=== PATIENT | male | born 1940 | race Caucasian/White ===

== ENCOUNTER → 2021-03-02 | Outpatient (CLI) | payer MEDICARE, OTHER ==
--- NOTE | 2021-03-02 16:03 | NM ---
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 Images acq uired 3 hours post injection. Whole body images, spot images over the thoracic and lumbar region were performed. FINDINGS: There has been prior left nephrectomy. Uptake within the hands, wrists, knees, feet and ankles, shoul ders, sternoclavicular joints is likely degenerative. Uptake within the thoracic and lumbar spine may be due to degenerative disc disease. There is no abnormal uptake to suggest metastatic disease. Upta ke in the maxilla and mandible likely due to periodontal disease. IMPRESSION: Osteoarthritic changes, degenerative disc disease.
== END | disposition home or self-care (01) ==
LOC: RADNMMAIN 11:24
PROVIDERS: ATTEND Physical Medicine & Rehabilitation
DX: M51.36 Other intervertebral disc degeneration, lumbar region (principal); M17.0 Bilateral primary osteoarthritis of knee; M19.011 Primary osteoarthritis, right shoulder; M19.012 Primary osteoarthritis, left shoulder
CPT/HCPCS: 78306; A9503

== ENCOUNTER 2024-02-19 07:10 | Inpatient (IN) | payer MEDICARE, OTHER ==
--- NOTE | 2024-02-19 07:21 | ED ---
Weakness HPI - General Stated complaint: Tachycardia Time Seen by Provider: 02/19/24 07:15 Source: RN notes reviewed, old records reviewed Mode of arrival: ambulatory Limitations: no limitations - History of Present Illness Initial comments: This is an 83-year-old male to the ER for evaluation today. Patient comes in for significant weakness stated all throughout last night and into this morning he had persistent shaking, tremors, feeling freezing and sweating. Patient's [place] does have known flu, patient has no cough congestion maybe some shortness of breath without chest pain patient has had cough and shortness of breath since last night MD Complaint: generalized weakness, lack of energy -: hour(s) Location: generalized Severity: moderate Consistency: constant Improves with: none Worsens with: none Context: recent illness (family member with recent illness) Associated Symptoms: fever/chills, loss of appetite, myalgias, shortness of breath - Related Data Home Medications Medication Instructions Recorded Confirmed INSULIN LISPRO (HumaLOG) [humaLOG] 8 - 11 units SQ AC-TID 02/19/24 02/19/24 Insulin Glargine [Lantus Vial] 25 - 26 unit SQ HS 02/19/24 02/19/24 [place]-3/Dha/Epa/Fish Oil [Fish Oil 1 cap PO DAILY 02/19/24 02/19/24 1,000 mg Softgel] Vits A,C,E/Lutein/Minerals 1 tab PO DAILY 02/19/24 02/19/24 [Ocuvite with Lutein Tablet] lisinopriL [Zestril] 20 mg PO DAILY 02/19/24 02/19/24 Previous Rx's Medication Instructions Recorded Aspirin 81 mg PO DAILY tab 02/22/24 Atorvastatin [Lipitor] 20 mg PO HS #30 tab 02/22/24 cefUROXime axetiL [Ceftin] 500 mg PO BID #10 tab 02/22/24 Allergies Allergy/AdvReac Type Severity Reaction Status Date / Time Penicillins Allergy Rash/Hives Verified 02/19/24 12:44 Review of Systems ROS Statement: Those systems with pertinent positive or pertinent negative responses have been documented in the HPI. ROS Other: All systems not noted in ROS Statement are negative. General Exam General appearance: alert, anxious, in distress Head exam: Present: atraumatic, normocephalic, normal inspection Eye exam: Present: normal appearance, PERRL, EOMI. Absent: scleral icterus, conjunctival injection, periorbital swelling ENT exam: Present: normal exam, mucous membranes dry Neck exam: Present: normal inspection. Absent: tenderness, meningismus, lymphadenopathy Respiratory exam: Present: wheezes. Absent: respiratory distress, rales, rhonchi, stridor Cardiovascular Exam: Present: normal rhythm, tachycardia, normal heart sounds. Absent: systolic murmur, diastolic murmur, rubs, gallop, clicks GI/Abdominal exam: Present: soft, normal bowel sounds. Absent: distended, tenderness, guarding, rebound, rigid Extremities exam: Present: normal inspection, full ROM, normal capillary refill. Absent: tenderness, pedal edema, joint swelling, calf tenderness Back exam: Present: normal inspection Neurological exam: Present: alert, oriented X3, CN II-XII intact Psychiatric exam: Present: normal affect, normal mood Skin exam: Present: warm, dry, intact, normal color. Absent: rash Course Vital Signs 02/19/24 02/19/24 02/19/24 07:40 08:24 08:46 Temperature 103.5 F H 100.8 F H Pulse Rate 113 H Respiratory 19 19 Rate Blood Pressure 119/60 O2 Sat by Pulse 93 L Oximetry 02/19/24 02/19/24 02/19/24 10:10 12:44 16:16 Temperature 98.2 F 97.3 F L Pulse Rate 88 81 73 Respiratory 17 18 18 Rate Blood Pressure 112/61 105/54 112/62 O2 Sat by Pulse 93 L 95 97 Oximetry 02/19/24 20:51 Temperature Pulse Rate 90 Respiratory 20 Rate Blood Pressure 114/71 O2 Sat by Pulse 97 Oximetry - Reevaluation(s) Reevaluation #1: 02/19/24 12:22 Medical records reviewed Reevaluation #2: 02/19/24 12:22 Patient symptoms unchanged Reevaluation #3: 02/19/24 12:22 Patient informed of results and questions answered Reevaluation #4: Was pt. sent in by a medical professional or institution (, PA, VASCULAR SONOGRAPHER, urgent care, hospital, or detention...) When possible be specific @ -no Did you speak to anyone other than the patient for history (EMS, parent, family, police, friend...)? What history was obtained from this source @ -no Did you review nursing and triage notes (agree or disagree)? Why? @ -agree Are old charts reviewed (outside hosp., previous admission, EMS record, old EKG, old radiological studies, urgent care reports/EKG's, detention records)? Report findings @ -yes Differential Diagnosis (chest pain, altered mental status, abdominal pain women, abdominal pain men, vaginal bleeding, weakness, fever, dyspnea, syncope, headache, dizziness, GI bleed, back pain, seizure, CVA, palpatations, mental health, musculoskeletal)? @ -prior EKG interpreted by me (3pts min.). @ -yes X-rays interpreted by me (1pt min.). @ -yes negative for acute disease CT interpreted by me (1pt min.). @ -no U/S interpreted by me (1pt. min.). @ -no What testing was considered but not performed or refused? (CT, X-rays, U/S, labs)? Why? @ -none What meds were considered but not given or refused? Why? @ -none Did you discuss the management of the patient with other professionals (professionals i.e. , PA, VASCULAR SONOGRAPHER, lab, RT, psych nurse, forensic social worker, network developer, teacher, correction officer supervisor, top case assembler)? Give summary @ -no Was smoking cessation discussed for >3mins.? @ -no Was critical care preformed (if so, how long)? @ -no Were there social determinants of health that impacted care today? How? (Homelessness, low income, unemployed, alcoholism, drug addiction, transportation, low edu. Level, literacy, decrease access to med. care, correction, rehab)? @ -none Was there de-escalation of care discussed even if they declined (Discuss DNR or withdrawal of care, Hospice)? DNR status @ -no What co-morbidities impacted this encounter? (DM, HTN, Smoking, COPD, CAD, Cancer, CVA, ARF, Chemo, Hep., AIDS, mental health diagnosis, sleep apnea, morbid obesity)? @ -none Was patient admitted / discharged? Hospital course, mention meds given and route, prescriptions, significant lab abnormalities, going to OR and other pertinent info. @ - 83 male to ER for evaluation of fever. Patient is having fever here in the emergency department, weakness body aches and pains, family member recently diagnosed with influenza concern for viral illness but patient does have elevated troponin will admit for non-ST elevated [place] Admitted Undiagnosed new problem with uncertain prognosis? @ -no Drug Therapy requiring intensive monitoring for toxicity (Heparin, Nitro, Insulin, Cardizem)? @ -no Were any procedures done? @ -no Diagnosis/symptom? @ -Non-STEMI fever viral illness Acute, or Chronic, or Acute on Chronic? @ -Acute Uncomplicated (without systemic symptoms) or Complicated (systemic symptoms)? @ -Complicated Side effects of treatment? @ -no Exacerbation, Progression, or Severe Exacerbation? @ -exacerbation Poses a threat to life or bodily function? How? (Chest pain, [place], [place], pneumonia, PE, COPD, DKA, ARF, appy, cholecystitis, CVA, Diverticulitis, Homicidal, Suicidal, threat to staff... and all critical care pts) @ -yes extremes of age Reevaluation #5: Differential Fever: Pneumonia, viral URI, endocarditis, myocarditis, pericarditis, otitis, sinusitis, peritonsillar Abscess, retropharyngeal Abscess, epiglottitis, peritonitis, appendicitis, Lucia cystitis, diverticulitis, hepatitis, colitis, UTI, PID, TOA, pyelonephritis, prostatitis, epididymitis, meningitis, encephalitis, pulmonary embolism, CVA, thyroid storm, pancreatitis, adrenal crisis, cavernous sinus thrombosis, this is not meant to be an all-inclusive list. - Consultations Consultation #1: Spoke with admitting physicians who agreed admit this patient EKG Findings - EKG Comments: EKG Findings:: EKG is sinus tachycardia 102 CO 189 QRS 87 QTc 369 - EKG Results: EKG: interpreted by DANILOD Medical Decision Making - Medical Decision Making 83 male to ER for evaluation of fever. Patient is having fever here in the emergency department, weakness body aches and pains, family member recently diagnosed with influenza concern for viral illness but patient does have elevated troponin will admit for non-ST elevated [place] - Lab Data Result diagrams: 02/22/24 12:58 02/20/24 07:40 Lab Results 02/19/24 02/19/24 02/19/24 Range/Units 08:21 08:21 08:21 WBC 7.8 (3.8-10.6) k/uL RBC 4.29 L (4.30-5.90) m/uL Hgb 14.1 (13.0-17.5) gm/dL Hct 41.4 (39.0-53.0) % MCV 96.5 (80.0-100.0) fL MCH 32.9 (25.0-35.0) pg MCHC 34.1 (31.0-37.0) g/dL RDW 13.9 (11.5-15.5) % Plt Count 143 L (150-450) k/uL MPV 7.8 Neutrophils % 94 % Lymphocytes % 3 % Monocytes % 1 % Eosinophils % 1 % Basophils % 0 % Neutrophils # 7.3 (1.3-7.7) k/uL Lymphocytes # 0.2 L (1.0-4.8) k/uL Monocytes # 0.1 (0-1.0) k/uL Eosinophils # 0.1 (0-0.7) k/uL Basophils # 0.0 (0-0.2) k/uL PT 12.3 (10.0-12.5) sec INR 1.1 (<1.2) APTT 22.3 (22.0-30.0) sec Sodium 136 L (137-145) mmol/L Potassium 4.0 (3.5-5.1) mmol/L Chloride 109 H (98-107) mmol/L Carbon Dioxide 20 L (22-30) mmol/L Anion Gap 7 mmol/L BUN 28 H (9-20) mg/dL Creatinine 1.25 (0.66-1.25) mg/dL Est GFR (CKD-EPI)AfAm 63 (>60 ml/min/1.73 sqM) Est GFR (CKD-EPI)NonAf 54 (>60 ml/min/1.73 sqM) Glucose 170 H (74-99) mg/dL Lactic Ac Sepsis Rflx Plasma Lactic Acid Patrick (0.7-2.0) mmol/L Calcium 9.3 (8.4-10.2) mg/dL Phosphorus 1.1 L (2.5-4.5) mg/dL Magnesium 1.2 L (1.6-2.3) mg/dL Total Bilirubin 1.4 H (0.2-1.3) mg/dL AST 33 (17-59) U/L ALT 19 (4-49) U/L Alkaline Phosphatase 75 (38-126) U/L Troponin I (0.000-0.034) ng/mL NT-Pro-B Natriuret Pep 120 pg/mL Total Protein 6.8 (6.3-8.2) g/dL Albumin 3.8 (3.5-5.0) g/dL Urine Color Urine Appearance (Clear) Urine pH (5.0-8.0) Ur Specific [place] (1.001-1.035) Urine Protein (Negative) Urine Glucose (UA) (Negative) Urine Ketones (Negative) Urine Blood (Negative) Urine Nitrite (Negative) Urine Bilirubin (Negative) Urine Urobilinogen (<2.0) mg/dL Ur Leukocyte Esterase (Negative) Influenza Type A (PCR) (Not Detectd) Influenza Type B (PCR) (Not Detectd) RSV (PCR) (Not Detectd) SARS-CoV-2 (PCR) (Not Detectd) 02/19/24 02/19/24 02/19/24 Range/Units 08:21 08:21 08:21 WBC (3.8-10.6) k/uL RBC (4.30-5.90) m/uL Hgb (13.0-17.5) gm/dL Hct (39.0-53.0) % MCV (80.0-100.0) fL MCH (25.0-35.0) pg MCHC (31.0-37.0) g/dL RDW (11.5-15.5) % Plt Count (150-450) k/uL MPV Neutrophils % % Lymphocytes % % Monocytes % % Eosinophils % % Basophils % % Neutrophils # (1.3-7.7) k/uL Lymphocytes # (1.0-4.8) k/uL Monocytes # (0-1.0) k/uL Eosinophils # (0-0.7) k/uL Basophils # (0-0.2) k/uL PT (10.0-12.5) sec INR (<1.2) APTT (22.0-30.0) sec Sodium (137-145) mmol/L Potassium (3.5-5.1) mmol/L Chloride (98-107) mmol/L Carbon Dioxide (22-30) mmol/L Anion Gap mmol/L BUN (9-20) mg/dL Creatinine (0.66-1.25) mg/dL Est GFR (CKD-EPI)AfAm (>60 ml/min/1.73 sqM) Est GFR (CKD-EPI)NonAf (>60 ml/min/1.73 sqM) Glucose (74-99) mg/dL Lactic Ac Sepsis Rflx Plasma Lactic Acid Patrick 2.2 H* (0.7-2.0) mmol/L Calcium (8.4-10.2) mg/dL Phosphorus (2.5-4.5) mg/dL Magnesium (1.6-2.3) mg/dL Total Bilirubin (0.2-1.3) mg/dL AST (17-59) U/L ALT (4-49) U/L Alkaline Phosphatase (38-126) U/L Troponin I 1.060 H* (0.000-0.034) ng/mL NT-Pro-B Natriuret Pep pg/mL Total Protein (6.3-8.2) g/dL Albumin (3.5-5.0) g/dL Urine Color Urine Appearance (Clear) Urine pH (5.0-8.0) Ur Specific [place] (1.001-1.035) Urine Protein (Negative) Urine Glucose (UA) (Negative) Urine Ketones (Negative) Urine Blood (Negative) Urine Nitrite (Negative) Urine Bilirubin (Negative) Urine Urobilinogen (<2.0) mg/dL Ur Leukocyte Esterase (Negative) Influenza Type A (PCR) Not Detected (Not Detectd) Influenza Type B (PCR) Not Detected (Not Detectd) RSV (PCR) Not Detected (Not Detectd) SARS-CoV-2 (PCR) Not Detected (Not Detectd) 02/19/24 02/19/24 Range/Units 10:06 11:48 WBC (3.8-10.6) k/uL RBC (4.30-5.90) m/uL Hgb (13.0-17.5) gm/dL Hct (39.0-53.0) % MCV (80.0-100.0) fL MCH (25.0-35.0) pg MCHC (31.0-37.0) g/dL RDW (11.5-15.5) % Plt Count (150-450) k/uL MPV Neutrophils % % Lymphocytes % % Monocytes % % Eosinophils % % Basophils % % Neutrophils # (1.3-7.7) k/uL Lymphocytes # (1.0-4.8) k/uL Monocytes # (0-1.0) k/uL Eosinophils # (0-0.7) k/uL Basophils # (0-0.2) k/uL PT (10.0-12.5) sec INR (<1.2) APTT (22.0-30.0) sec Sodium (137-145) mmol/L Potassium (3.5-5.1) mmol/L Chloride (98-107) mmol/L Carbon Dioxide (22-30) mmol/L Anion Gap mmol/L BUN (9-20) mg/dL Creatinine (0.66-1.25) mg/dL Est GFR (CKD-EPI)AfAm (>60 ml/min/1.73 sqM) Est GFR (CKD-EPI)NonAf (>60 ml/min/1.73 sqM) Glucose (74-99) mg/dL Lactic Ac Sepsis Rflx Y Plasma Lactic Acid Patrick (0.7-2.0) mmol/L Calcium (8.4-10.2) mg/dL Phosphorus (2.5-4.5) mg/dL Magnesium (1.6-2.3) mg/dL Total Bilirubin (0.2-1.3) mg/dL AST (17-59) U/L ALT (4-49) U/L Alkaline Phosphatase (38-126) U/L Troponin I (0.000-0.034) ng/mL NT-Pro-B Natriuret Pep pg/mL Total Protein (6.3-8.2) g/dL Albumin (3.5-5.0) g/dL Urine Color Yellow Urine Appearance Clear (Clear) Urine pH 5.0 (5.0-8.0) Ur Specific [place] 1.020 (1.001-1.035) Urine Protein Negative (Negative) Urine Glucose (UA) Negative (Negative) Urine Ketones Negative (Negative) Urine Blood Negative (Negative) Urine Nitrite Negative (Negative) Urine Bilirubin Negative (Negative) Urine Urobilinogen 2.0 (<2.0) mg/dL Ur Leukocyte Esterase Negative (Negative) Influenza Type A (PCR) (Not Detectd) Influenza Type B (PCR) (Not Detectd) RSV (PCR) (Not Detectd) SARS-CoV-2 (PCR) (Not Detectd) - Radiology Data Radiology results: report reviewed (Chest x-ray is negative for acute disease), image reviewed Critical Care Time Critical Care Time: Yes Total Critical Care Time: 31 Disposition Clinical Impression: Fever, Hypomagnesemia, NSTEMI (non-ST elevated myocardial infarction), Positive blood culture, Weakness Disposition: ADMITTED IP TO THIS HOSP Is patient prescribed a controlled substance at d/c from ED?: No Time of Disposition: 12:30
[2024-02-19] MEDS: IBUPROFEN 800 MG TAB PO STA (07:53)
[2024-02-19] MEDS: ACETAMINOPHEN TAB 500 MG TAB PO STA (07:53)
[2024-02-19] MEDS: SODIUM CHLORIDE 0.9% 1,000 ML IV STA (08:20)
[2024-02-19 08:38] LABS: Basophils % (A) 0 %; Eosinophils # (A) 0.1 k/uL (0-0.7); Eosinophils % (A) 1 %; HCT 41.4 % (39.0-53.0); HGB 14.1 gm/dL (13.0-17.5); Lymphocytes # (A) 0.2 k/uL (1.0-4.8); Lymphocytes % (A) 3 %; MCH 32.9 pg (25.0-35.0); MCHC 34.1 g/dL (31.0-37.0); MCV 96.5 fL (80.0-100.0); Mean Platelet Volume 7.8; Monocytes # (A) 0.1 k/uL (0-1.0); Monocytes % (A) 1 %; Neutrophils # (A) 7.3 k/uL (1.3-7.7); Neutrophils % (A) 94 %; Platelet Count 143 k/uL (150-450); RBC 4.29 m/uL (4.30-5.90); RDW 13.9 % (11.5-15.5); WBC 7.8 k/uL (3.8-10.6)
[2024-02-19 09:05] LABS: INR 1.1 (<1.2); Partial Thromboplastin Time 22.3 sec (22.0-30.0); Prothrombin Time 12.3 sec (10.0-12.5)
--- NOTE | 2024-02-19 09:22 | XR ---
EXAMINATION TYPE: XR chest 2V DATE OF EXAM: 02/19/2024 COMPARISON: NONE TECHNIQUE: PA and lateral views submitted. HISTORY: Cough FINDINGS: No pleural effusion or pneumothorax. No consolidative pneumonia. No overt failure. Biapical pleural t hickening. Degenerative changes of the spine. Arthropathy of the right AC joint. IMPRESSION: 1. No definite acute process. [facility], , 02/19/2024 9:20 AM
[2024-02-19 09:42] LABS: ALT 19 U/L (4-49); AST 33 U/L (17-59); African American GFR (CKD) 63 (>60 ml/min/1.73 sqM); Albumin 3.8 g/dL (3.5-5.0); Alkaline Phosphatase 75 U/L (38-126); Anion Gap 7 mmol/L; Blood Urea Nitrogen 28 mg/dL (9-20); Calcium 9.3 mg/dL (8.4-10.2); Carbon Dioxide 20 mmol/L (22-30); Chloride 109 mmol/L (98-107); Glucose 170 mg/dL (74-99); Magnesium 1.2 mg/dL (1.6-2.3); Non-African American GFR(CKD) 54 (>60 ml/min/1.73 sqM); Phosphorus 1.1 mg/dL (2.5-4.5); Sodium 136 mmol/L (137-145); Total Bilirubin 1.4 mg/dL (0.2-1.3); Total Protein 6.8 g/dL (6.3-8.2)
[2024-02-19 09:44] LABS: NT-Pro-B-Type Natriuretic Pept 120 pg/mL
[2024-02-19] MEDS: MAGNESIUM OXIDE 400 MG TAB PO STA ×2 (09:55)
[2024-02-19] MEDS: MAGNESIUM SULFATE-D5W PMX 1 GM in DEXTROSE/WATER 1 100ML.BAG IVPB ONE (09:56)
[2024-02-19] MEDS: SODIUM CHLORIDE 0.9% 500 ML 500 ML IV STA (10:05)
[2024-02-19] MEDS: SODIUM CHLORIDE 0.9% 1,000 ML IV SCH (11:04)
[2024-02-19] MEDS ORDERED: MORPHINE SULFATE 4 MG/ML SYRINGE IV PRN (12:18)
[2024-02-19] MEDS ORDERED: ONDANSETRON 4 MG/2 ML VIAL IVP PRN (12:18)
[2024-02-19] MEDS ORDERED: ASPIRIN 325 MG TAB PO STA (12:18)
[2024-02-19] MEDS ORDERED: ACETAMINOPHEN TAB 325 MG TAB PO PRN (12:18)
[2024-02-19] MEDS ORDERED: NALOXONE 0.4 MG/ML 1 ML VIAL IV PRN (12:18)
[2024-02-19 12:22] LABS: Appearance,Urine Clear (Clear); Bilirubin,Urine Negative (Negative); Blood,Urine Negative (Negative); Color,Urine Yellow; Glucose,Urine (UA) Negative (Negative); Ketones,Urine Negative (Negative); Leukocyte Esterase,Urine Negative (Negative); Nitrite,Urine Negative (Negative); Protein,Urine Negative (Negative)
[2024-02-19] MEDS: ACETAMINOPHEN IV (For NPO) 1,000 MG in EMPTY BAG 1 BAG IVPB STA (13:06)
[2024-02-19] MEDS: ASPIRIN 81 MG PO STA (13:08)
[2024-02-19] MEDS: LORazepam 2 MG/ML INJ IV STA (13:09)
[2024-02-19] MEDS ORDERED: HEPARIN SODIUM 1,000 UN/ML (10ML VL) IV PRN (13:53)
[2024-02-19] MEDS ORDERED: Phosphorus Replacement Protoco 1 EACH MISC MISCELLANE PRN (13:53)
[2024-02-19] MEDS ORDERED: DEXTROSE 50% SYRINGE 50 ML IVP PRN ×2 (13:55)
--- NOTE | 2024-02-19 13:57 | P.HPIM ---
History of Present Illness H&P Date: 02/19/24 History of present illness; patient is a 83-year-old gentleman with past medical history significant for diabetes mellitus, pancreatitis the ER because of chills and shortness of breath for 1 day. Patient stated that he was all right last night when he started noticing that he was shaking uncontrollably. Patient did not check his fever at the time but felt very cold. Patient also complained of shortness of breath at the time. Shortness of breath was at rest as on exertion. Denied any chest pain. There is no complaint of orthopnea or PND. Denied any nausea or vomiting. Patient stated that her feeling of being cold lasted throughout the night and this morning he decided to come to the ER. Initial vital signs in the ER showed a temperature of 103.5. Initial lab work done in the ER showed WBC 7.8, hemoglobin 14.1, platelet count of 143 sodium 136, potassium 4, BUN 28, creatinine 1.25, lactate 2.2, phosphorus 1.1, magnesium 1.2, bilirubin 1.4, troponin 1.060 UA negative for any infection Influenza A not detected Influenza B not detected RSV not detected COVID-19 not detected EKG done in the ER showed heart rate of 102, no ST segment elevation or depression seen, no T-wave inversions seen. Chest x-ray done in the ER no acute process Patient admitted to internal medicine service REVIEW OF SYSTEMS: CONSTITUTIONAL: Mentioned above HEENT: No recent visual problems or hearing problems. Denied any sore throat. CARDIOVASCULAR: As mentioned above PULMONARY: As mentioned above GASTROINTESTINAL: No diarrhea, no nausea, no vomiting, no abdominal pain. NEUROLOGICAL: No headaches, no weakness, no numbness. HEMATOLOGICAL: Denies any bleeding or petechiae. GENITOURINARY: Denies any burning micturition, frequency, or urgency. MUSCULOSKELETAL/RHEUMATOLOGICAL: Denies any joint pain, swelling, or any muscle pain. ENDOCRINE: Denies any polyuria or polydipsia. The rest of the 14-point review of systems is negative. PHYSICAL EXAMINATION: GENERAL: The patient is alert and oriented x3, not in any acute distress. Well developed, well nourished. HEENT: Pupils are round and equally reacting to light. EOMI. No scleral icterus. No conjunctival pallor. Normocephalic, atraumatic. No pharyngeal erythema. No thyromegaly. CARDIOVASCULAR: S1 and S2 present. No murmurs, rubs, or gallops. PULMONARY: Chest is clear to auscultation, no wheezing or crackles. ABDOMEN: Soft, nontender, nondistended, normoactive bowel sounds. No palpable organomegaly. MUSCULOSKELETAL: No joint swelling or deformity. EXTREMITIES: No cyanosis, clubbing, or pedal edema. NEUROLOGICAL: Gross neurological examination did not reveal any focal deficits. SKIN: No rashes. Assessment and plan NSTEMI Hypophosphatemia Hypomagnesemia Fever of unknown origin Insulin-dependent diabetes mellitus Hypertension Monitor vital signs Monitor CBC Monitor CMP Continue telemetry monitoring Trend troponin Ordered ultrasound of abdomen Ordered blood cultures Ordered 2D echo Ordered CRP, ESR, Pro-Rashaad Hold off on antibiotics for now Start pharmacy to dose heparin Consult cardiology Labs and medication were reviewed.. Continue same treatment. Continue with symptomatic treatment. Resume home medication. Monitor labs and vitals. DVT and GI prophylaxis. Further recommendations as per clinical course of the patient Dictation was produced using [employer] dictation software. please excuse any grammatical, word or spelling errors. Past Medical History Past Medical History: Diabetes Mellitus, Hypertension Additional Past Medical History / Comment(s): macular degeneration History of Any Multi-Drug Resistant Organisms: None Reported Additional Past Surgical History / Comment(s): Kidney Cancer/removed 2006, Pancreatitis, ablation/surgery in 2007 Past Psychological History: No Psychological Hx Reported Smoking Status: Former smoker Past Alcohol Use History: Daily Medications and Allergies Home Medications Medication Instructions Recorded Confirmed Type INSULIN LISPRO (HumaLOG) [humaLOG] 8 - 11 units SQ AC-TID 02/19/24 02/19/24 History Insulin Glargine [Lantus Vial] 25 - 26 unit SQ HS 02/19/24 02/19/24 History [place]-3/Dha/Epa/Fish Oil [Fish Oil 1 cap PO DAILY 02/19/24 02/19/24 History 1,000 mg Softgel] Vits A,C,E/Lutein/Minerals 1 tab PO DAILY 02/19/24 02/19/24 History [Ocuvite with Lutein Tablet] lisinopriL [Zestril] 20 mg PO DAILY 02/19/24 02/19/24 History Allergies Allergy/AdvReac Type Severity Reaction Status Date / Time Penicillins Allergy Rash/Hives Verified 02/19/24 12:44 Physical Exam Vitals: Vital Signs Temp Pulse Resp BP Pulse Ox 02/19/24 12:44 81 18 105/54 95 02/19/24 10:10 98.2 F 88 17 112/61 93 L 02/19/24 08:46 100.8 F H 02/19/24 08:24 19 02/19/24 07:40 103.5 F H 113 H 19 119/60 93 L Intake and Output 02/18/24 02/19/24 02/19/24 22:59 06:59 14:59 Other: Weight 103.419 kg Results CBC & Chem 7: 02/19/24 08:21 02/19/24 08:21 Labs: Abnormal Lab Results - Last 24 Hours (Table) 02/19/24 02/19/24 02/19/24 Range/Units 08:21 08:21 08:21 RBC 4.29 L (4.30-5.90) m/uL Plt Count 143 L (150-450) k/uL Lymphocytes # 0.2 L (1.0-4.8) k/uL Sodium 136 L (137-145) mmol/L Chloride 109 H (98-107) mmol/L Carbon Dioxide 20 L (22-30) mmol/L BUN 28 H (9-20) mg/dL Glucose 170 H (74-99) mg/dL Plasma Lactic Acid Patrick 2.2 H* (0.7-2.0) mmol/L Phosphorus 1.1 L (2.5-4.5) mg/dL Magnesium 1.2 L (1.6-2.3) mg/dL Total Bilirubin 1.4 H (0.2-1.3) mg/dL Troponin I (0.000-0.034) ng/mL 02/19/24 Range/Units 08:21 RBC (4.30-5.90) m/uL Plt Count (150-450) k/uL Lymphocytes # (1.0-4.8) k/uL Sodium (137-145) mmol/L Chloride (98-107) mmol/L Carbon Dioxide (22-30) mmol/L BUN (9-20) mg/dL Glucose (74-99) mg/dL Plasma Lactic Acid Patrick (0.7-2.0) mmol/L Phosphorus (2.5-4.5) mg/dL Magnesium (1.6-2.3) mg/dL Total Bilirubin (0.2-1.3) mg/dL Troponin I 1.060 H* (0.000-0.034) ng/mL
[2024-02-19 14:40] LABS: Glucose,Whole Blood 158 mg/dL (70-110)
[2024-02-19 14:41] LABS: Basophils % (A) 0 %; Eosinophils % (A) 0 %; HCT 38.5 % (39.0-53.0); HGB 12.9 gm/dL (13.0-17.5); Lymphocytes # (A) 0.3 k/uL (1.0-4.8); Lymphocytes % (A) 2 %; MCHC 33.4 g/dL (31.0-37.0); MCV 98.7 fL (80.0-100.0); Mean Platelet Volume 7.7; Monocytes # (A) 0.5 k/uL (0-1.0); Monocytes % (A) 4 %; Neutrophils # (A) 14.1 k/uL (1.3-7.7); Neutrophils % (A) 94 %; Platelet Count 131 k/uL (150-450); RDW 13.5 % (11.5-15.5)
[2024-02-19] MEDS: HEPARIN SOD,PORK IN 0.45% NACL 25,000 UNIT in 0.45% NACL 1 250ML.BAG IV SCH (14:41)
[2024-02-19 15:03] LABS: INR 1.2 (<1.2); Partial Thromboplastin Time 25.1 sec (22.0-30.0); Prothrombin Time 12.7 sec (10.0-12.5)
[2024-02-19] MEDS: POTAS-SOD-PHOS 278-164-250 MG 1 EACH PACKET PO ONE (15:16)
--- NOTE | 2024-02-19 15:36 | US ---
EXAMINATION TYPE: US abdomen limited DATE OF EXAM: 02/19/2024 COMPARISON: NONE CLINICAL INDICATION: Male, 83 years old with history of Elevated bilirubin; Elevated bilirubin. left nephrectomy TECHNIQUE: Multiple sonographic images of the right upper quadrant are obtained. FINDINGS: EXAM MEASUREMENTS: Liver Length: 15.5 cm Gallbladder Wall: 0.2 cm CBD: 0.6 cm Right Kidney: 13.3 x 5.4 x 5.5 cm BUNDLE BREAKER NOTES:*Technical limitations due to large amount of overlying bowel gas Pancreas: Obscured by bowel gas Liver: visualized portions appear wnl Gallbladder: stones Evidence for sonographic Johnson's sign: no CBD: upper limits of normal Right Kidney: no evidence of hydronephrosis IMPRESSION: Cholelithiasis. Common bile duct at the upper limits of normal at 6 mm. [facility], , 02/19/2024 3:33 PM
[2024-02-19] MEDS ORDERED: IOPAMIDOL CONTRAST (ORAL USE) VIAL PO PRN (17:07)
[2024-02-19 17:49] LABS: Glucose,Whole Blood 183 mg/dL (70-110)
[2024-02-19] MEDS: INSULIN ASPART (NovoLOG) 100 UNIT/ML VIAL SQ SCH (18:27)
[2024-02-19] MEDS ORDERED: INSULIN DETEMIR (LEVEMIR) 100 UNIT/ML SYR SQ SCH (21:00)
--- NOTE | 2024-02-19 21:13 | CT ---
EXAMINATION TYPE: CT abdomen pelvis w con DATE OF EXAM: 02/19/2024 COMPARISON: CT angiogram dated 12/19/2012 HISTORY: nausea, fever CT DLP: 1582 mGycm Automated exposure control for dose reduction was used. TECHNIQUE: Helical acquisition of images was performed from the lung bases through the pelvis. CONTRAST: Performed with Oral Contrast and with IV Contrast, patient injected with 80cc mL of Isovue 300. The lung bases are clear. There are multiple small gallstones but no gallbladder distention, wall thickening or pericholecystic fluid. There is no biliary ductal dilatation. There is no focal mass or organomegaly involving the liver, pancreas, spleen or adrenal glands. The p ancreas is markedly atrophic. There are postsurgical changes of left nephrectomy. There is no solid right renal mass, calcification or hydronephrosis. The caliber the abdominal aorta is normal is no retroperitoneal adenopathy or hem orrhage. The bowel loops are normal in caliber and there is no evidence of dilatation or obstruction. No infla mmatory changes are identified in the bowel wall or mesentery. There is diverticulosis of the descend ing sigmoid colon without CT evidence of diverticulitis There is a mesh anterior hernia repair. There is no free intraperitoneal air or fluid. No pelvic mass, free fluid, abscess or adenopathy. There is moderate prostatic hypertrophy. The osseous structures and soft tissues are intact. IMPRESSION: 1. No acute changes within the abdomen or pelvis. 2. Left nephrectomy. 3. Marked pancreatic atrophy. 4. Cholelithiasis. 5. Moderate prostatic hypertrophy [facility], , 02/19/2024 9:10 PM
[2024-02-19 21:25] LABS: Glucose,Whole Blood 231 mg/dL (70-110)
[2024-02-19 21:27] LABS: Erythrocyte Sedimentation Rate 21 mm/Hr (0-20)
--- NOTE | 2024-02-19 21:44 | P.CONS ---
History of Present Illness - Reason for Consult Consult date: 02/19/24 Fever of unknown origin Requesting physician: Marvin Masters - Chief Complaint Rigors and chills x 1 day - History of Present Illness Patient is a 83-year-old male with a past medical history significant for diabetes mellitus hypertension macular degeneration former smoker presenting to the hospital for evaluation of rigors and chills in this patient symptom started the night before presentation to the hospital patient mention he did have a significant episode of rigors and chills subsequently started having sweating patient denies having any headache or URI symptoms denies having any chest pain shortness of breath or cough no nausea no vomiting no abdominal pain no diarrhea or constipation patient on presentation to the hospital did have a fever of 103.5 F patient was tachycardic not hypotensive or hypoxic and no need for supplemental oxygen patient did have a white count of 15,000 with a left shift creatinine is 1.25 bilirubin was 1.4 troponins are elevated urine has been negative he tested negative for influenza RSV and COVID patient did have a chest x-ray no definite acute process patient did have an abdominal ultrasound did shows cholelithiasis common bile duct at upper limits of normal patient has been admitted to the hospital infectious he was consulted for further management antibiotic therapy Review of Systems Positive point and negatives has been mentioned in the HPI, complete review of systems was performed and all other systems are negative Past Medical History Past Medical History: Diabetes Mellitus, Hypertension Additional Past Medical History / Comment(s): macular degeneration History of Any Multi-Drug Resistant Organisms: None Reported Additional Past Surgical History / Comment(s): Kidney Cancer/removed 2006, Pancreatitis, ablation/surgery in 2007 Past Psychological History: No Psychological Hx Reported Smoking Status: Former smoker Past Alcohol Use History: Daily Medications and Allergies Home Medications Medication Instructions Recorded Confirmed Type INSULIN LISPRO (HumaLOG) [humaLOG] 8 - 11 units SQ AC-TID 02/19/24 02/19/24 History Insulin Glargine [Lantus Vial] 25 - 26 unit SQ HS 02/19/24 02/19/24 History [place]-3/Dha/Epa/Fish Oil [Fish Oil 1 cap PO DAILY 02/19/24 02/19/24 History 1,000 mg Softgel] Vits A,C,E/Lutein/Minerals 1 tab PO DAILY 02/19/24 02/19/24 History [Ocuvite with Lutein Tablet] lisinopriL [Zestril] 20 mg PO DAILY 02/19/24 02/19/24 History Allergies Allergy/AdvReac Type Severity Reaction Status Date / Time Penicillins Allergy Rash/Hives Verified 02/19/24 12:44 Physical Exam Vitals: Vital Signs Temp Pulse Resp BP Pulse Ox 02/19/24 16:16 97.3 F L 73 18 112/62 97 02/19/24 12:44 81 18 105/54 95 02/19/24 10:10 98.2 F 88 17 112/61 93 L 02/19/24 08:46 100.8 F H 02/19/24 08:24 19 02/19/24 07:40 103.5 F H 113 H 19 119/60 93 L Intake and Output 02/19/24 02/19/24 02/19/24 06:59 14:59 22:59 Other: Weight 103.419 kg GENERAL DESCRIPTION: Elderly male up in bed, no distress. No tachypnea or accessory muscle of respiration use. HEENT: Shows Pallor , no scleral icterus. Oral mucous membrane is dry. No pharyngeal erythema or thrush NECK: Trachea central, no thyromegaly. LUNGS: Unlabored breathing. Clear to auscultation anteriorly. No wheeze or crackle. HEART: S1, S2, regular rate and rhythm. No loud murmur ABDOMEN: Soft, no tenderness , guarding or rigidity, no organomegaly EXTREMITIES: No edema of feet. SKIN: No rash, no masses palpable. NEUROLOGICAL: The patient is awake, alert, oriented x3, mood and affect normal. Results CBC & Chem 7: 02/19/24 14:11 02/19/24 08:21 Labs: Abnormal Lab Results - Last 24 Hours (Table) 02/19/24 02/19/24 02/19/24 Range/Units 08:21 08:21 08:21 WBC (3.8-10.6) k/uL RBC 4.29 L (4.30-5.90) m/uL Hgb (13.0-17.5) gm/dL Hct (39.0-53.0) % Plt Count 143 L (150-450) k/uL Neutrophils # (1.3-7.7) k/uL Lymphocytes # 0.2 L (1.0-4.8) k/uL PT (10.0-12.5) sec INR (<1.2) D-Dimer (<0.60) mg/L FEU Sodium 136 L (137-145) mmol/L Chloride 109 H (98-107) mmol/L Carbon Dioxide 20 L (22-30) mmol/L BUN 28 H (9-20) mg/dL Glucose 170 H (74-99) mg/dL POC Glucose (mg/dL) (70-110) mg/dL Plasma Lactic Acid Patrick 2.2 H* (0.7-2.0) mmol/L Phosphorus 1.1 L (2.5-4.5) mg/dL Magnesium 1.2 L (1.6-2.3) mg/dL Total Bilirubin 1.4 H (0.2-1.3) mg/dL Troponin I (0.000-0.034) ng/mL C-Reactive Protein (<1.0) mg/dL 02/19/24 02/19/24 02/19/24 Range/Units 08:21 14:11 14:11 WBC (3.8-10.6) k/uL RBC (4.30-5.90) m/uL Hgb (13.0-17.5) gm/dL Hct (39.0-53.0) % Plt Count (150-450) k/uL Neutrophils # (1.3-7.7) k/uL Lymphocytes # (1.0-4.8) k/uL PT (10.0-12.5) sec INR (<1.2) D-Dimer (<0.60) mg/L FEU Sodium (137-145) mmol/L Chloride (98-107) mmol/L Carbon Dioxide (22-30) mmol/L BUN (9-20) mg/dL Glucose (74-99) mg/dL POC Glucose (mg/dL) (70-110) mg/dL Plasma Lactic Acid Patrick (0.7-2.0) mmol/L Phosphorus (2.5-4.5) mg/dL Magnesium (1.6-2.3) mg/dL Total Bilirubin (0.2-1.3) mg/dL Troponin I 1.060 H* 1.820 H* (0.000-0.034) ng/mL C-Reactive Protein 3.6 H (<1.0) mg/dL 02/19/24 02/19/24 02/19/24 Range/Units 14:11 14:11 14:39 WBC 15.0 H (3.8-10.6) k/uL RBC 3.90 L (4.30-5.90) m/uL Hgb 12.9 L (13.0-17.5) gm/dL Hct 38.5 L (39.0-53.0) % Plt Count 131 L (150-450) k/uL Neutrophils # 14.1 H (1.3-7.7) k/uL Lymphocytes # 0.3 L (1.0-4.8) k/uL PT 12.7 H (10.0-12.5) sec INR 1.2 H (<1.2) D-Dimer 5.31 H (<0.60) mg/L FEU Sodium (137-145) mmol/L Chloride (98-107) mmol/L Carbon Dioxide (22-30) mmol/L BUN (9-20) mg/dL Glucose (74-99) mg/dL POC Glucose (mg/dL) 158 H (70-110) mg/dL Plasma Lactic Acid Patrick (0.7-2.0) mmol/L Phosphorus (2.5-4.5) mg/dL Magnesium (1.6-2.3) mg/dL Total Bilirubin (0.2-1.3) mg/dL Troponin I (0.000-0.034) ng/mL C-Reactive Protein (<1.0) mg/dL Assessment and Plan (1) Penicillin allergy Current Visit: Yes Status: Acute Code(s): Z88.0 - ALLERGY STATUS TO PENICILLIN SNOMED Code(s): 98971146 (2) Fever Current Visit: Yes Status: Acute Code(s): R50.9 - FEVER, UNSPECIFIED SNOMED Code(s): 261376810 Plan: 1patient presented to hospital with rigors and chills in this patient who did have fever elevated white count tachycardia meeting criteria for SIRS source pos sible cholangitis at the patient did have a elevated bilirubin there was evidence of gallstones as well as CBD upper limit normal on the ultrasound, currently no other obvious focus of infection chest x-ray was clear urine is negative for evidence of cellulitis or joint swelling. 2patient with a penicillin allergy that will limit number of antibiotics safe to use. 3we will check a CT of abdominal pelvis to better definition of the hepatobiliary area. 4we will start the patient on Rocephin 2 g daily while waiting for the workup to be completed. We will follow on clinical condition and cultures to further adjust medication if needed Thank you for this consultation we will follow the patient along with you Dictation was produced using [email or web address] dictation software. please excuse any grammatical, word or spelling errors. Time with Patient: Greater than 30
[2024-02-19] MEDS: INSULIN DETEMIR (LEVEMIR) 100 UNIT/ML SYR SQ SCH (21:56)
[2024-02-20 00:45] LABS: Appearance,Urine Clear (Clear); Bilirubin,Urine Negative (Negative); Blood,Urine Negative (Negative); Color,Urine Colorless; Glucose,Urine (UA) 1+ (Negative); Ketones,Urine Negative (Negative); Leukocyte Esterase,Urine Negative (Negative); Nitrite,Urine Negative (Negative); PH, Urine 5.5 (5.0-8.0); Protein,Urine Negative (Negative); Specific Gravity,Urine 1.021 (1.001-1.035); Urobilinogen,Urine <2.0 mg/dL (<2.0)
[2024-02-20 02:34] LABS: Basophils % (A) 0 %; Eosinophils # (A) 0.2 k/uL (0-0.7); Eosinophils % (A) 1 %; HCT 36.4 % (39.0-53.0); Lymphocytes # (A) 0.4 k/uL (1.0-4.8); Lymphocytes % (A) 3 %; MCHC 32.9 g/dL (31.0-37.0); MCV 100.4 fL (80.0-100.0); Mean Platelet Volume 7.6; Monocytes # (A) 0.4 k/uL (0-1.0); Monocytes % (A) 3 %; Neutrophils # (A) 10.6 k/uL (1.3-7.7); Neutrophils % (A) 91 %; Platelet Count 103 k/uL (150-450); RBC 3.63 m/uL (4.30-5.90); RDW 13.5 % (11.5-15.5); WBC 11.6 k/uL (3.8-10.6)
[2024-02-20 02:38] LABS: INR 1.3 (<1.2)
[2024-02-20 06:22] LABS: Glucose,Whole Blood 100 mg/dL (70-110)
[2024-02-20] MEDS ORDERED: REGADENOSON 0.4 MG/5 ML SYRINGE IV ONE (08:00)
[2024-02-20 08:10] LABS: Basophils % (A) 0 %; Eosinophils # (A) 0.1 k/uL (0-0.7); Eosinophils % (A) 1 %; HCT 35.9 % (39.0-53.0); HGB 12.1 gm/dL (13.0-17.5); Lymphocytes # (A) 0.7 k/uL (1.0-4.8); Lymphocytes % (A) 6 %; MCHC 33.7 g/dL (31.0-37.0); Mean Platelet Volume 7.5; Monocytes # (A) 0.4 k/uL (0-1.0); Monocytes % (A) 3 %; Neutrophils # (A) 10.7 k/uL (1.3-7.7); Neutrophils % (A) 88 %; Platelet Count 113 k/uL (150-450); RBC 3.66 m/uL (4.30-5.90); RDW 13.4 % (11.5-15.5); WBC 12.2 k/uL (3.8-10.6)
[2024-02-20] MEDS: VIT A,C & E-LUTEIN-MINERALS 1 EACH TAB PO SCH (08:25)
[2024-02-20] MEDS: lisinopriL 20 MG TAB PO SCH (08:25)
[2024-02-20 08:42] LABS: ALT 23 U/L (4-49); AST 45 U/L (17-59); African American GFR (CKD) 70 (>60 ml/min/1.73 sqM); Albumin 3.2 g/dL (3.5-5.0); Alkaline Phosphatase 64 U/L (38-126); Anion Gap 6 mmol/L; Blood Urea Nitrogen 27 mg/dL (9-20); Calcium 8.5 mg/dL (8.4-10.2); Carbon Dioxide 22 mmol/L (22-30); Chloride 109 mmol/L (98-107); Glucose 95 mg/dL (74-99); Magnesium 1.7 mg/dL (1.6-2.3); Non-African American GFR(CKD) 61 (>60 ml/min/1.73 sqM); Potassium 4.4 mmol/L (3.5-5.1); Sodium 137 mmol/L (137-145); Total Bilirubin 0.8 mg/dL (0.2-1.3); Total Protein 6.1 g/dL (6.3-8.2)
[2024-02-20] MEDS ORDERED: NON FORMULARY DRUG (Omega-3/Dha/Epa/Fish Oil [Fish Oil 1,000 Mg Softgel] 1 EACH Capsule) PO SCH (09:00)
[2024-02-20] MEDS ORDERED: AMINOPHYLLINE 500 MG/20 ML VIAL IV PRN (10:53)
[2024-02-20] MEDS ORDERED: CAFFEINE CITRATE 60 MG/3 ML VIAL IV PRN (10:53)
[2024-02-20] MEDS ORDERED: REGADENOSON 0.4 MG/5 ML SYRINGE IV PRN (10:53)
[2024-02-20 11:55] LABS: Glucose,Whole Blood 131 mg/dL (70-110)
--- NOTE | 2024-02-20 13:26 | P.CRDCN ---
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 We have been asked to evaluate the patient for elevated troponins. Patient gives history that he woke up on Monday with rigors shaking he tried to drink some water but did not feel much better. He went on for a good part of the day and then decided to call EMS and come in. He also had significant sweats. He denies having any shortness of breath or chest pain/pressure/tightness. No abdominal pain no nausea or diarrhea. He is feeling better at this time. He states he is usually active golfs 2 times per week, mows the riding lawn more and can walk a mile without shortness of breath. He denies having any dizziness, no palpitations, no lower extremity edema. No PND. Patient drinks 2 beers per day and 2 cups of coffee per day. Patient has been started on a heparin drip and IV fluids. Blood pressure 119/58, heart rate 83, pulse ox 96% on room air. Temperature max was 103.5. Patient has been seen by infectious disease with sepsis secondary to cholangitis a possibility. EKG: Sinus rhythm with no acute ST-T wave changes. Chest x-ray: No acute process CT abdomen and pelvis reveals no acute changes within the abdomen or pelvis. Left nephrectomy. Marked pancreatic atrophy. Cholelithiasis. Moderate prost atic hypertrophy. Abdominal ultrasound revealed cholelithiasis. Common bile duct at the upper limits of normal at 6 mm. Laboratory studies: WBC 12.2, hemoglobin 12.1, platelet count 113. Sodium 137, potassium 4.4, BUN 27 creatinine 1.13. Troponins 1.06, 1.82, 1.38. Home cardiac medications: Lisinopril 20 mg daily. Review Of Systems: At the time of my exam: CONSTITUTIONAL: Denies fever or chills. HEENT: Denies blurred vision, vision changes, or eye pain. Denies hemoptysis CARDIOVASCULAR: Denies chest pain. Denies orthopnea. Denies PND. Denies palpitations RESPIRATORY: Denies shortness of breath. GASTROINTESTINAL: Denies abdominal pain. Denies nausea or vomiting. HEMATOLOGIC: Denies bleeding disorders. GENITOURINARY: Denies any blood in urine. SKIN: Denies puritis. Denies rash. Physical examination: Gen: This is an 83-year-old male appears to be in no acute distress. VS: reviewed HEENT: Head is atraumatic, normocephalic. Pupils equal, round. Sclerae is anicteric. NECK: Supple. No JVD. LUNGS: Clear to auscultation. No wheezes or rhonchi. No intercostal retractions. HEART: Regular rate and rhythm. No murmur. ABDOMEN: Soft No tenderness. EXTREMITIES: No pedal edema. No calf tenderness. NEUROLOGICAL: Patient is awake, alert and oriented x3. Assessment: Sepsis possibly related to cholangitis, passed gallbladder stone Elevated troponins, most likely secondary to sepsis Hypertension History of pancreatic abscess status postresection History of renal cancer status post resection Daily alcohol intake Plan: Resume patient's home cardiac medications Schedule patient for Lexiscan stress test tomorrow N.p.o. after midnight Obtain 2-D echocardiogram and Doppler study to assess cardiac structure and function Further recommendations to follow based upon clinical course Thank you kindly for this consultation. Nurse practitioner note has been reviewed, I agree with documented findings and plan of care. Patient was seen and examined. Past Medical History Past Medical History: Diabetes Mellitus, Hypertension Additional Past Medical History / Comment(s): macular degeneration History of Any Multi-Drug Resistant Organisms: None Reported Additional Past Surgical History / Comment(s): kidney cancer/removed 2006, pancreatitis, ablation/surgery in 2007 Past Anesthesia/Blood Transfusion Reactions: No Reported Reaction Past Psychological History: No Psychological Hx Reported Smoking Status: Former smoker Past Alcohol Use History: Daily Medications and Allergies Home Medications Medication Instructions Recorded Confirmed Type INSULIN LISPRO (HumaLOG) [humaLOG] 8 - 11 units SQ AC-TID 02/19/24 02/19/24 History Insulin Glargine [Lantus Vial] 25 - 26 unit SQ HS 02/19/24 02/19/24 History [place]-3/Dha/Epa/Fish Oil [Fish Oil 1 cap PO DAILY 02/19/24 02/19/24 History 1,000 mg Softgel] Vits A,C,E/Lutein/Minerals 1 tab PO DAILY 02/19/24 02/19/24 History [Ocuvite with Lutein Tablet] lisinopriL [Zestril] 20 mg PO DAILY 02/19/24 02/19/24 History Allergies Allergy/AdvReac Type Severity Reaction Status Date / Time Penicillins Allergy Rash/Hives Verified 02/19/24 12:44 Physical Exam Vitals: Vital Signs Temp Pulse Pulse Resp BP BP Pulse Ox 02/20/24 08:24 98.0 F 83 16 119/58 96 02/20/24 04:00 98.2 F 80 16 131/60 98 02/20/24 00:00 97.4 F L 56 L 18 151/66 98 02/19/24 21:00 97.5 F L 74 16 122/60 99 02/19/24 20:51 90 20 114/71 97 02/19/24 16:16 97.3 F L 73 18 112/62 97 02/19/24 12:44 81 18 105/54 95 Intake and Output 02/19/24 02/20/24 02/20/24 22:59 06:59 14:59 Intake Total 20 10 Balance 20 10 Intake: IV 20 10 Invasive Line 1 10 Invasive Line 2 10 10 Other: Voiding Method Toilet Toilet Toilet # Voids 1 2 Weight 103.419 kg 102.1 kg Results 02/20/24 07:40 02/20/24 07:40 Cardiac Enzymes 02/19/24 02/19/24 02/20/24 Range/Units 14:11 19:27 07:40 AST 45 (17-59) U/L Troponin I 1.820 H* 1.380 H* (0.000-0.034) ng/mL Coagulation 02/19/24 02/19/24 02/20/24 Range/Units 14:11 19:27 02:04 PT 12.7 H 14.0 H (10.0-12.5) sec APTT 25.1 40.6 H (22.0-30.0) sec 02/20/24 Range/Units 02:04 PT (10.0-12.5) sec APTT 52.1 H (22.0-30.0) sec CBC 09/23/24 09/24/24 09/24/24 Range/Units 14:11 02:04 07:40 WBC 15.0 H 11.6 H 12.2 H (3.8-10.6) k/uL RBC 3.90 L 3.63 L 3.66 L (4.30-5.90) m/uL Hgb 12.9 L 12.0 L 12.1 L (13.0-17.5) gm/dL Hct 38.5 L 36.4 L 35.9 L (39.0-53.0) % Plt Count 131 L 103 L 113 L (150-450) k/uL Comprehensive Metabolic Panel 02/20/24 Range/Units 07:40 Sodium 137 (137-145) mmol/L Potassium 4.4 (3.5-5.1) mmol/L Chloride 109 H (98-107) mmol/L Carbon Dioxide 22 (22-30) mmol/L BUN 27 H (9-20) mg/dL Creatinine 1.13 (0.66-1.25) mg/dL Glucose 95 (74-99) mg/dL Calcium 8.5 (8.4-10.2) mg/dL AST 45 (17-59) U/L ALT 23 (4-49) U/L Alkaline Phosphatase 64 (38-126) U/L Total Protein 6.1 L (6.3-8.2) g/dL Albumin 3.2 L (3.5-5.0) g/dL Current Medications Generic Name Dose Route Start Last Admin Trade Name Freq PRN Reason Stop Dose Admin Acetaminophen 650 mg 02/19/24 12:18 Acetaminophen Tab 325 Mg Tab PO Q6HR PRN Mild Pain or Fever > 100.5 Dextrose/Water 25 ml 02/19/24 13:55 Dextrose 50% Syringe 50 Ml IVP PER PROTOCOL PRN Hypoglycemia Protocol Dextrose/Water 50 ml 02/19/24 13:55 Dextrose 50% Syringe 50 Ml IVP PER PROTOCOL PRN Hypoglycemia Protocol Heparin Sodium (Porcine) 0 unit 02/19/24 13:53 Heparin Sodium 1,000 Un/Ml (10ml Vl) IV PER PROTOCOL PRN Low PTT Protocol Sodium Chloride 1,000 mls @ 130 mls/hr 02/19/24 10:00 02/20/24 03:24 Saline 0.9% IV 130 mls/hr .Q7H42M SLOAN Administration Heparin Sodium/Sodium Chloride 250 mls @ 10 mls/hr 02/19/24 14:00 02/19/24 14:41 25,000 unit/ Sodium Chloride IV 9.669 units/kg/hr .Q24H SLOAN 10 mls/hr Administration Protocol 9.669 UNITS/KG/HR Ceftriaxone Sodium 2 gm/ 50 mls @ 100 mls/hr 02/19/24 16:45 02/20/24 08:25 Sodium Chloride IVPB 100 mls/hr Q24HR SLOAN Administration Protocol Insulin Aspart 0 unit 02/19/24 17:30 02/20/24 06:24 Insulin Aspart (Novolog) 100 Unit/Ml Vial SQ Not Given ACHS SLOAN Protocol Insulin Detemir 25 unit 02/19/24 21:00 02/19/24 21:56 Insulin Detemir (Levemir) 100 Unit/Ml Syr SQ 25 unit HS SLOAN Administration Iopamidol 30 ml 02/19/24 17:07 Iopamidol Contrast (Oral Use) Vial PO 02/20/24 17:[address] Scan Lisinopril 20 mg 02/20/24 09:00 02/20/24 08:25 Lisinopril 20 Mg Tab PO 20 mg DAILY SLOAN Administration Miscellaneous Information 1 each 02/19/24 13:53 Phosphorus Replacement Protoco 1 Each Misc MISCELLANE DAILY PRN Per Protocol Protocol Morphine Sulfate 4 mg 02/19/24 12:18 Morphine Sulfate 4 Mg/Ml Syringe IV Q4HR PRN Severe Pain (Scale 7 to 10) Multivitamins/Minerals 1 each 02/20/24 09:00 02/20/24 08:25 Vit A,C & K-[id number] 1 Each Tab PO 1 each DAILY SLOAN Administration Naloxone HCl 0.2 mg 02/19/24 12:18 Naloxone 0.4 Mg/Ml 1 Ml Vial IV Q2M PRN Opioid Reversal Ondansetron HCl 4 mg 02/19/24 12:18 Ondansetron 4 Mg/2 Ml Vial IVP Q8HR PRN Nausea And Vomiting Intake and Output 02/19/24 02/20/24 02/20/24 22:59 06:59 14:59 Intake Total 20 10 Balance 20 10 Intake: IV 20 10 Invasive Line 1 10 Invasive Line 2 10 10 Other: Voiding Method Toilet Toilet Toilet # Voids 1 2 Weight 103.419 kg 102.1 kg 02/20/24 07:40 02/20/24 07:40
--- NOTE | 2024-02-20 13:47 | P.PN ---
Subjective Progress Note Date: 02/20/24 patient is a 83-year-old gentleman with past medical history significant for diabetes mellitus, pancreatitis the ER because of chills and shortness of breath for 1 day. Patient stated that he was all right last night when he started noticing that he was shaking uncontrollably. Patient did not check his fever at the time but felt very cold. Patient also complained of shortness of breath at the time. Shortness of breath was at rest as on exertion. Denied any chest pain. There is no complaint of orthopnea or PND. Denied any nausea or vomiting. Patient stated that her feeling of being cold lasted throughout the night and this morning he decided to come to the ER. Initial vital signs in the ER showed a temperature of 103.5. Initial lab work done in the ER showed WBC 7.8, hemoglobin 14.1, platelet count of 143 sodium 136, potassium 4, BUN 28, creatinine 1.25, lactate 2.2, phosphorus 1.1, magnesium 1.2, bilirubin 1.4, troponin 1.060 UA negative for any infection Influenza A not detected Influenza B not detected RSV not detected COVID-19 not detected EKG done in the ER showed heart rate of 102, no ST segment elevation or depression seen, no T-wave inversions seen. Chest x-ray done in the ER no acute process Patient admitted to internal medicine service 02/19. Patient seen and examined. CT abdominal pelvis done showed no acute changes within the abdominal pelvis. Left nephrectomy, marked pancreatic atrophy. Cardiology eval the patient, ordered stress test and 2D echo. Denies any fever or chills. States he is doing much better. REVIEW OF SYSTEMS: CONSTITUTIONAL: No fever, no malaise,. CARDIOVASCULAR: No chest pain, no palpitations, no syncope. PULMONARY: No shortness of breath, no cough, GASTROINTESTINAL: No diarrhea, no nausea, no vomiting, no abdominal pain. NEUROLOGICAL: No headaches, no weakness, PHYSICAL EXAMINATION: GENERAL: The patient is alert and oriented x3, not in any acute distress. Well developed, well nourished. HEENT: Pupils are round and equally reacting to light. EOMI. No scleral icterus. No conjunctival pallor. Normocephalic, atraumatic. No pharyngeal erythema. No thyromegaly. CARDIOVASCULAR: S1 and S2 present. No murmurs, rubs, or gallops. PULMONARY: Chest is clear to auscultation, no wheezing or crackles. ABDOMEN: Soft, nontender, nondistended, normoactive bowel sounds. No palpable organomegaly. MUSCULOSKELETAL: No joint swelling or deformity. EXTREMITIES: No cyanosis, clubbing, or pedal edema. NEUROLOGICAL: Gross neurological examination did not reveal any focal deficits. SKIN: No rashes. Assessment and plan NSTEMI Hypophosphatemia Hypomagnesemia Fever of unknown origin Possible cholangitis Insulin-dependent diabetes mellitus Hypertension Monitor vital signs Monitor CBC Monitor CMP Continue telemetry monitoring Follow-up on blood cultures Follow-up on 2D echo Follow-up on stress test Continue IV Rocephin ID following cardiology following Labs and medication were reviewed.. Continue same treatment. Continue with symptomatic treatment. Resume home medication. Monitor labs and vitals. DVT and GI prophylaxis. Further recommendations as per clinical course of the patient Dictation was produced using [employer] dictation software. please excuse any grammatical, word or spelling errors. Objective - Vital Signs Vital signs: Vital Signs Temp 98.0 F 02/20/24 08:24 Pulse 83 02/20/24 08:24 Resp 16 02/20/24 08:24 BP 119/58 02/20/24 08:24 Pulse Ox 96 02/20/24 08:24 FiO2 Intake & Output 02/19/24 02/20/24 02/20/24 18:59 06:59 18:59 Intake Total 20 10 Balance 20 10 Weight 103.419 kg 102.1 kg Intake: IV 20 10 Invasive Line 1 10 Invasive Line 2 10 10 Other: Voiding Method Toilet Toilet # Voids 2 - Labs CBC & Chem 7: 02/20/24 07:40 02/20/24 07:40 Labs: Abnormal Lab Results - Last 24 Hours (Table) 02/19/24 02/19/24 02/19/24 Range/Units 14:11 14:11 14:11 WBC 15.0 H (3.8-10.6) k/uL RBC 3.90 L (4.30-5.90) m/uL Hgb 12.9 L (13.0-17.5) gm/dL Hct 38.5 L (39.0-53.0) % MCV (80.0-100.0) fL Plt Count 131 L (150-450) k/uL Neutrophils # 14.1 H (1.3-7.7) k/uL Lymphocytes # 0.3 L (1.0-4.8) k/uL ESR 21 H (0-20) mm/Hr PT (10.0-12.5) sec INR (<1.2) APTT (22.0-30.0) sec D-Dimer (<0.60) mg/L FEU Chloride (98-107) mmol/L BUN (9-20) mg/dL POC Glucose (mg/dL) (70-110) mg/dL Hemoglobin A1c (<=6.0) % Troponin I 1.820 H* (0.000-0.034) ng/mL C-Reactive Protein 3.6 H (<1.0) mg/dL Total Protein (6.3-8.2) g/dL Albumin (3.5-5.0) g/dL Procalcitonin (0.02-0.50) ng/mL Urine Glucose (UA) (Negative) 02/19/24 02/19/24 02/19/24 Range/Units 14:11 14:11 14:17 WBC (3.8-10.6) k/uL RBC (4.30-5.90) m/uL Hgb (13.0-17.5) gm/dL Hct (39.0-53.0) % MCV (80.0-100.0) fL Plt Count (150-450) k/uL Neutrophils # (1.3-7.7) k/uL Lymphocytes # (1.0-4.8) k/uL ESR (0-20) mm/Hr PT 12.7 H (10.0-12.5) sec INR 1.2 H (<1.2) APTT (22.0-30.0) sec D-Dimer 5.31 H (<0.60) mg/L FEU Chloride (98-107) mmol/L BUN (9-20) mg/dL POC Glucose (mg/dL) (70-110) mg/dL Hemoglobin A1c 6.9 H (<=6.0) % Troponin I (0.000-0.034) ng/mL C-Reactive Protein (<1.0) mg/dL Total Protein (6.3-8.2) g/dL Albumin (3.5-5.0) g/dL Procalcitonin 46.40 H (0.02-0.50) ng/mL Urine Glucose (UA) (Negative) 02/19/24 02/19/24 02/19/24 Range/Units 14:39 17:47 19:27 WBC (3.8-10.6) k/uL RBC (4.30-5.90) m/uL Hgb (13.0-17.5) gm/dL Hct (39.0-53.0) % MCV (80.0-100.0) fL Plt Count (150-450) k/uL Neutrophils # (1.3-7.7) k/uL Lymphocytes # (1.0-4.8) k/uL ESR (0-20) mm/Hr PT (10.0-12.5) sec INR (<1.2) APTT (22.0-30.0) sec D-Dimer (<0.60) mg/L FEU Chloride (98-107) mmol/L BUN (9-20) mg/dL POC Glucose (mg/dL) 158 H 183 H (70-110) mg/dL Hemoglobin A1c (<=6.0) % Troponin I 1.380 H* (0.000-0.034) ng/mL C-Reactive Protein (<1.0) mg/dL Total Protein (6.3-8.2) g/dL Albumin (3.5-5.0) g/dL Procalcitonin (0.02-0.50) ng/mL Urine Glucose (UA) (Negative) 02/19/24 02/19/24 02/20/24 Range/Units 19:27 21:24 00:05 WBC (3.8-10.6) k/uL RBC (4.30-5.90) m/uL Hgb (13.0-17.5) gm/dL Hct (39.0-53.0) % MCV (80.0-100.0) fL Plt Count (150-450) k/uL Neutrophils # (1.3-7.7) k/uL Lymphocytes # (1.0-4.8) k/uL ESR (0-20) mm/Hr PT (10.0-12.5) sec INR (<1.2) APTT 40.6 H (22.0-30.0) sec D-Dimer (<0.60) mg/L FEU Chloride (98-107) mmol/L BUN (9-20) mg/dL POC Glucose (mg/dL) 231 H (70-110) mg/dL Hemoglobin A1c (<=6.0) % Troponin I (0.000-0.034) ng/mL C-Reactive Protein (<1.0) mg/dL Total Protein (6.3-8.2) g/dL Albumin (3.5-5.0) g/dL Procalcitonin (0.02-0.50) ng/mL Urine Glucose (UA) 1+ H (Negative) 02/20/24 02/20/24 02/20/24 Range/Units 02:04 02:04 02:04 WBC 11.6 H (3.8-10.6) k/uL RBC 3.63 L (4.30-5.90) m/uL Hgb 12.0 L (13.0-17.5) gm/dL Hct 36.4 L (39.0-53.0) % MCV 100.4 H (80.0-100.0) fL Plt Count 103 L (150-450) k/uL Neutrophils # 10.6 H (1.3-7.7) k/uL Lymphocytes # 0.4 L (1.0-4.8) k/uL ESR (0-20) mm/Hr PT 14.0 H (10.0-12.5) sec INR 1.3 H (<1.2) APTT 52.1 H (22.0-30.0) sec D-Dimer (<0.60) mg/L FEU Chloride (98-107) mmol/L BUN (9-20) mg/dL POC Glucose (mg/dL) (70-110) mg/dL Hemoglobin A1c (<=6.0) % Troponin I (0.000-0.034) ng/mL C-Reactive Protein (<1.0) mg/dL Total Protein (6.3-8.2) g/dL Albumin (3.5-5.0) g/dL Procalcitonin (0.02-0.50) ng/mL Urine Glucose (UA) (Negative) 02/20/24 02/20/24 Range/Units 07:40 07:40 WBC 12.2 H (3.8-10.6) k/uL RBC 3.66 L (4.30-5.90) m/uL Hgb 12.1 L (13.0-17.5) gm/dL Hct 35.9 L (39.0-53.0) % MCV (80.0-100.0) fL Plt Count 113 L (150-450) k/uL Neutrophils # 10.7 H (1.3-7.7) k/uL Lymphocytes # 0.7 L (1.0-4.8) k/uL ESR (0-20) mm/Hr PT (10.0-12.5) sec INR (<1.2) APTT (22.0-30.0) sec D-Dimer (<0.60) mg/L FEU Chloride 109 H (98-107) mmol/L BUN 27 H (9-20) mg/dL POC Glucose (mg/dL) (70-110) mg/dL Hemoglobin A1c (<=6.0) % Troponin I (0.000-0.034) ng/mL C-Reactive Protein (<1.0) mg/dL Total Protein 6.1 L (6.3-8.2) g/dL Albumin 3.2 L (3.5-5.0) g/dL Procalcitonin (0.02-0.50) ng/mL Urine Glucose (UA) (Negative)
[2024-02-20 16:33] LABS: Chol/HDL Ratio 2.23 Ratio; LDL Cholesterol,Calculated 47.6 mg/dL (0.0-131.0)
[2024-02-20 16:59] LABS: Glucose,Whole Blood 159 mg/dL (70-110)
[2024-02-20 19:54] LABS: Glucose,Whole Blood 223 mg/dL (70-110)
[2024-02-21 05:59] LABS: Glucose,Whole Blood 119 mg/dL (70-110)
[2024-02-21] MEDS ORDERED: REGADENOSON 0.4 MG/5 ML SYRINGE IV PRN (07:00)
--- NOTE | 2024-02-21 07:09 | CA ---
Transthoracic Echo Report Name: Prakash Rand Age: 83 Gender: M : 1940 Exam Date: 02/20/2024 08:45 Exam Location: [facility] Ht (in): 73 Wt (lb): 228 Ordering Physician: Rebel Shepard DO Attending/Referring Phys: [id number], [facility] Department Chair Simi Hoffman RDCS Procedure CPT: Indications: elevTrop Cardiac Hx: Technical Quality: Good Contrast 1: Total Dose (mL): Contrast 2: Total Dose (mL): MEASUREMENTS (Male / Female) Normal Values 2D ECHO LV Diastolic Diameter PLAX 4.2 cm 4.2 - 5.9 / 3.9 - 5.3 cm LV Systolic Diameter PLAX 2.9 cm IVS Diastolic Thickness 1.6 cm 0.6 - 1.0 / 0.6 - 0.9 cm LVPW Diastolic Thickness 1.3 cm 0.6 - 1.0 / 0.6 - 0.9 cm LV Relative Wall Thickness 0.7 RV Internal Dim ED PLAX 3.4 cm LA Systolic Diameter LX 3.8 cm 3.0 - 4.0 / 2.7 - 3.8 cm LV Diastolic Volume MOD 4C 126.0 cm??? LV Systolic Volume MOD 4C 55.7 cm??? LV Ejection Fraction MOD 4C 55.8 % LV Cardiac Index MOD 4C 2293.1 cm???/min???m??? LV Diastolic Length 4C 9.1 cm LV Systolic Length 4C 8.1 cm LV Diastolic Volume MOD 2C 89.5 cm??? LV Systolic Volume MOD 2C 37.2 cm??? LV Ejection Fraction MOD 2C 58.4 % LV Cardiac Index MOD 2C 1706.4 cm???/min???m??? LV Diastolic Length 2C 8.7 cm LV Systolic Length 2C 7.0 cm LA Volume 45.0 cm??? 18 - 58 / 22 - 52 cm??? LA Volume Index 19.3 cm???/m??? 16 - 28 cm???/m??? M-MODE Aortic Root Diameter MM 3.3 cm AV Cusp Separation MM 2.4 cm DOPPLER AV Peak Velocity 146.5 cm/s AV Peak Gradient 8.6 mmHg MV Area PHT 3.4 cm??? Mitral E Point Velocity 110.9 cm/s Mitral A Point Velocity 87.8 cm/s Mitral E to A Ratio 1.3 MV Deceleration Time 223.2 ms TR Peak Velocity 233.9 cm/s TR Peak Gradient 21.9 mmHg Right Ventricular Systolic Press 26.7 mmHg FINDINGS Left Ventricle Left ventricular ejection fraction is estimated at 55-60 %. Left ventricle not well visualized. Moderately increased septal wall thickness. Normal left ventricular wall motion. Right Ventricle Mild right ventricular dilatation. Right ventricular systolic pressure within normal limits. Right Atrium Mild right atrial dilatation. No right atrial thrombus or mass seen. Left Atrium Normal left atrial size. No left atrial thrombus or mass present. Mitral Valve Structurally normal mitral valve. No mitral stenosis, regurgitation or prolapse. Aortic Valve Trileaflet aortic valve. Aortic valve sclerosis. Thickened aortic valve without stenosis. Tricuspid Valve Structurally normal tricuspid valve. Mild tricuspid regurgitation. Pulmonic Valve Structurally normal pulmonic valve. Trace pulmonic regurgitation. Pericardium No pericardial or pleural effusion. Aorta Normal size aortic root and proximal ascending aorta. CONCLUSIONS Normal biventricular systolic function Normal pulmonary artery systolic pressure No pericardial effusion Previewed by: Dr. Kt Niño MD (Electronically Signed) Final Date: 21 February 2024 07:08
--- NOTE | 2024-02-21 08:33 | P.PN ---
Subjective Progress Note Date: 02/20/24 Principal diagnosis: Reason for follow-up is fever possible cholangitis Patient is a 83-year-old male with a past medical history significant for diabetes mellitus hypertension macular degeneration former smoker presenting to the hospital for evaluation of rigors and chills, patient was febrile initial workup did shows elevated bilirubin ultrasound suggestive of gallstones and CBD was upper limit normal subsequently did have a CT abdominal pelvis did not show any acute abnormality. On today's evaluation that is 02/20/2024,the patient did have resolution of his fever and is afebrile this morning patient is breathing comfortably on room air, the patient denies chest pain shortness of breath and no significant cough, patient denies abdominal pain, no nausea vomiting or diarrhea. Patient white count is down to 12.2 creatinine is 1.13 cultures are currently pending Objective - Vital Signs Vital signs: Vital Signs Temp 98.2 F 02/20/24 11:52 Pulse 75 02/20/24 11:52 Resp 18 02/20/24 11:52 BP 108/54 02/20/24 11:52 Pulse Ox 97 02/20/24 11:52 FiO2 Intake & Output 02/19/24 02/20/24 02/20/24 18:59 06:59 18:59 Intake Total 20 223.167 Balance 20 223.167 Weight 103.419 kg 102.1 kg Intake: IV 20 10 Invasive Line 1 10 Invasive Line 2 10 10 Intake, IV Titration 213.167 Amount Heparin Sod,Pork in 0.45% 213.167 NaCl 25,000 unit In 0.45 % NaCl 1 250ml.bag @ 9. 669 UNITS/KG/HR 10 mls/hr IV .[facility]H [facility] Rx#: [id number] Other: Voiding Method Toilet Toilet # Voids 2 - Exam GENERAL DESCRIPTION: An elderly male lying in bed in no distress RESPIRATORY SYSTEM: Unlabored breathing , decreased breath sounds at bases HEART: S1 S2 regular rate and rhythm , ABDOMEN: Soft , no tenderness EXTREMITIES: No edema feet - Labs CBC & Chem 7: 02/20/24 07:40 02/20/24 07:40 Labs: Abnormal Lab Results - Last 24 Hours (Table) 02/19/24 02/19/24 02/19/24 Range/Units 14:11 14:11 14:11 WBC 15.0 H (3.8-10.6) k/uL RBC 3.90 L (4.30-5.90) m/uL Hgb 12.9 L (13.0-17.5) gm/dL Hct 38.5 L (39.0-53.0) % MCV (80.0-100.0) fL Plt Count 131 L (150-450) k/uL Neutrophils # 14.1 H (1.3-7.7) k/uL Lymphocytes # 0.3 L (1.0-4.8) k/uL ESR 21 H (0-20) mm/Hr PT (10.0-12.5) sec INR (<1.2) APTT (22.0-30.0) sec D-Dimer (<0.60) mg/L FEU Chloride (98-107) mmol/L BUN (9-20) mg/dL POC Glucose (mg/dL) (70-110) mg/dL Hemoglobin A1c (<=6.0) % Troponin I 1.820 H* (0.000-0.034) ng/mL C-Reactive Protein 3.6 H (<1.0) mg/dL Total Protein (6.3-8.2) g/dL Albumin (3.5-5.0) g/dL Procalcitonin (0.02-0.50) ng/mL Urine Glucose (UA) (Negative) 02/19/24 02/19/24 02/19/24 Range/Units 14:11 14:11 14:17 WBC (3.8-10.6) k/uL RBC (4.30-5.90) m/uL Hgb (13.0-17.5) gm/dL Hct (39.0-53.0) % MCV (80.0-100.0) fL Plt Count (150-450) k/uL Neutrophils # (1.3-7.7) k/uL Lymphocytes # (1.0-4.8) k/uL ESR (0-20) mm/Hr PT 12.7 H (10.0-12.5) sec INR 1.2 H (<1.2) APTT (22.0-30.0) sec D-Dimer 5.31 H (<0.60) mg/L FEU Chloride (98-107) mmol/L BUN (9-20) mg/dL POC Glucose (mg/dL) (70-110) mg/dL Hemoglobin A1c 6.9 H (<=6.0) % Troponin I (0.000-0.034) ng/mL C-Reactive Protein (<1.0) mg/dL Total Protein (6.3-8.2) g/dL Albumin (3.5-5.0) g/dL Procalcitonin 46.40 H (0.02-0.50) ng/mL Urine Glucose (UA) (Negative) 02/19/24 02/19/24 02/19/24 Range/Units 14:39 17:47 19:27 WBC (3.8-10.6) k/uL RBC (4.30-5.90) m/uL Hgb (13.0-17.5) gm/dL Hct (39.0-53.0) % MCV (80.0-100.0) fL Plt Count (150-450) k/uL Neutrophils # (1.3-7.7) k/uL Lymphocytes # (1.0-4.8) k/uL ESR (0-20) mm/Hr PT (10.0-12.5) sec INR (<1.2) APTT (22.0-30.0) sec D-Dimer (<0.60) mg/L FEU Chloride (98-107) mmol/L BUN (9-20) mg/dL POC Glucose (mg/dL) 158 H 183 H (70-110) mg/dL Hemoglobin A1c (<=6.0) % Troponin I 1.380 H* (0.000-0.034) ng/mL C-Reactive Protein (<1.0) mg/dL Total Protein (6.3-8.2) g/dL Albumin (3.5-5.0) g/dL Procalcitonin (0.02-0.50) ng/mL Urine Glucose (UA) (Negative) 02/19/24 02/19/24 02/20/24 Range/Units 19:27 21:24 00:05 WBC (3.8-10.6) k/uL RBC (4.30-5.90) m/uL Hgb (13.0-17.5) gm/dL Hct (39.0-53.0) % MCV (80.0-100.0) fL Plt Count (150-450) k/uL Neutrophils # (1.3-7.7) k/uL Lymphocytes # (1.0-4.8) k/uL ESR (0-20) mm/Hr PT (10.0-12.5) sec INR (<1.2) APTT 40.6 H (22.0-30.0) sec D-Dimer (<0.60) mg/L FEU Chloride (98-107) mmol/L BUN (9-20) mg/dL POC Glucose (mg/dL) 231 H (70-110) mg/dL Hemoglobin A1c (<=6.0) % Troponin I (0.000-0.034) ng/mL C-Reactive Protein (<1.0) mg/dL Total Protein (6.3-8.2) g/dL Albumin (3.5-5.0) g/dL Procalcitonin (0.02-0.50) ng/mL Urine Glucose (UA) 1+ H (Negative) 02/20/24 02/20/24 02/20/24 Range/Units 02:04 02:04 02:04 WBC 11.6 H (3.8-10.6) k/uL RBC 3.63 L (4.30-5.90) m/uL Hgb 12.0 L (13.0-17.5) gm/dL Hct 36.4 L (39.0-53.0) % MCV 100.4 H (80.0-100.0) fL Plt Count 103 L (150-450) k/uL Neutrophils # 10.6 H (1.3-7.7) k/uL Lymphocytes # 0.4 L (1.0-4.8) k/uL ESR (0-20) mm/Hr PT 14.0 H (10.0-12.5) sec INR 1.3 H (<1.2) APTT 52.1 H (22.0-30.0) sec D-Dimer (<0.60) mg/L FEU Chloride (98-107) mmol/L BUN (9-20) mg/dL POC Glucose (mg/dL) (70-110) mg/dL Hemoglobin A1c (<=6.0) % Troponin I (0.000-0.034) ng/mL C-Reactive Protein (<1.0) mg/dL Total Protein (6.3-8.2) g/dL Albumin (3.5-5.0) g/dL Procalcitonin (0.02-0.50) ng/mL Urine Glucose (UA) (Negative) 02/20/24 02/20/24 02/20/24 Range/Units 07:40 07:40 11:54 WBC 12.2 H (3.8-10.6) k/uL RBC 3.66 L (4.30-5.90) m/uL Hgb 12.1 L (13.0-17.5) gm/dL Hct 35.9 L (39.0-53.0) % MCV (80.0-100.0) fL Plt Count 113 L (150-450) k/uL Neutrophils # 10.7 H (1.3-7.7) k/uL Lymphocytes # 0.7 L (1.0-4.8) k/uL ESR (0-20) mm/Hr PT (10.0-12.5) sec INR (<1.2) APTT (22.0-30.0) sec D-Dimer (<0.60) mg/L FEU Chloride 109 H (98-107) mmol/L BUN 27 H (9-20) mg/dL POC Glucose (mg/dL) 131 H (70-110) mg/dL Hemoglobin A1c (<=6.0) % Troponin I (0.000-0.034) ng/mL C-Reactive Protein (<1.0) mg/dL Total Protein 6.1 L (6.3-8.2) g/dL Albumin 3.2 L (3.5-5.0) g/dL Procalcitonin (0.02-0.50) ng/mL Urine Glucose (UA) (Negative) Microbiology - Last 24 Hours (Table) 02/19/24 08:21 Blood Culture - Preliminary Blood Assessment and Plan (1) Penicillin allergy Current Visit: Yes Status: Acute Code(s): Z88.0 - ALLERGY STATUS TO PENICILLIN SNOMED Code(s): 25626500 (2) Fever Current Visit: Yes Status: Acute Code(s): R50.9 - FEVER, UNSPECIFIED SNOMED Code(s): 937198697 Plan: 1patient presented to hospital with rigors and chills in this patient who did have fever elevated white count tachycardia meeting criteria for SIRS source possible cholangitis at the patient did have a elevated bilirubin there was evidence of gallstones as well as CBD upper limit normal on the ultrasound, currently no other obvious focus of infection chest x-ray was clear urine is negative for evidence of cellulitis or joint swelling. 2patient with a penicillin allergy that will limit number of antibiotics safe to use. 3patient did have CT of abdominal pelvis did not show any acute abnormality, patient did have elevated procalcitonin of 46.6 4patient to continue with Rocephin 2 g daily while waiting for the blood cultures to be finalized. Daughter at the bedside questions were answered Dictation was produced using [employer] dictation software. please excuse any grammatical, word or spelling errors. Time with Patient: Less than 30
[2024-02-21 11:31] LABS: Glucose,Whole Blood 154 mg/dL (70-110)
--- NOTE | 2024-02-21 11:58 | CA ---
Lexiscan Nuclear Stress Test Report Name: Prakash Rand Exam Date: 02/21/2024 09:25 Exam Location: [place] Ht (in): 72 Wt (lb): 225 BSA: 2.24 Ordering Phys: Alison Wei Referring Phys: RADHA, Technologist: Jimmy Masterson Age: 83 Gender: M : 1940 Procedure CPT: Indications: Reflex order-Stress test ICD-10 Codes: Patient History: HTN, DIABETES, FAMILY HX OF HEART DISEASE, PRIOR SMOKER Medications: Meds past 24 hrs: Pretest Chest Pain: STRESS TEST Lexiscan Protocol Exercise Duration (min:sec): 02:[address] Depressions (mm): Angina Score: Deal Score: Resting HR (bpm): 79 Peak HR (bpm): 93 Resting BP (mmHg): 147 / 66 Peak BP (mmHg): / 63 MPHR: 139 Target HR: 118 % MPHR: 67 METS: 1.0 Total Dose: Peak Dose: Atropine: Double Product: BP Response: Stress Termination: INFUSION COMPLETE Stress Symptoms: NO SYMPTOMS Stress Summary: ECG ANALYSIS Resting ECG: Stress ECG: CONCLUSIONS Nondiagnostic electrocardiogram stress testing Dr. Kt Niño MD (Electronically Signed) Final Date: 21 February 2024 11:57
--- NOTE | 2024-02-21 12:32 | CDI ---
Documentation Clarification Form Date: 02/21/2024 From: Lona Berger RN CCDS Phone: [phone] Admit Date: 02/19/2024 12:18:00 PM Patient Name: Prakash Rand Visit Number: [id number] Discharge Date: ATTENTION: The Clinical Documentation Specialists (CDI) and [facility] Coding Staff appreciate your assistance in clarifying documentation. Please respond to the clarification below the line at the bottom and electronically sign. The CDI & [facility] Coding staff will review the response and follow-up if needed. Please note: Queries are made part of the Legal Health Record. If you have any questions, please contact the author of this message via ITS. Doctor/Provider: Marvin Masters MD: There is documentation of sepsis in the Cardiology consult 02/19. Additional clarification is requested. History/Risk Factors: 83-year-old male with a history of DM and pancreatitis who presents with chills and SOB Clinical Indicators: 02/18 Triage VS: 119/60, 103.5, 113, 19, 93% on room air 02/18 ID consult, Plan: "1-patient presented to hospital with rigors and chills in this patient who did have fever elevated white count tachycardia meeting criteria for SIRS source possible cholangitis" 02/19 Cardiology consult, Assessment: "Sepsis possibly related to cholangitis, passed gallbladder stone." 02/18-02/19 WBC: 7.8, 15.0, 11.6, 12.2 02/18 Procalcitonin: 46.40 C-Reactive Protein: 3.6 Lactic Acid: 2.2, 1.9 02/18 US Abdomen, Impression: "Cholelithiasis. Common bile duct at the upper limits of normal at 6 mm." 02/18 CT Abdomen/Pelvis, Impression: "1. No acute changes within the abdomen or pelvis." Treatment: Normal Saline IV 1000cc bolus x2 on 02/18 [id number] start 02/18 Rocephin IV 2gram [id number] start 02/18 Consult ID Can you please clarify the diagnosis of sepsis? [ x] Sepsis POA [ ] Sepsis developed during admission [ ] Sepsis ruled out [ ] SIRS [ ] SIRS ruled out [ ] Other, please specify [ ] Unable to determine SIRS Criteria: 2 or more of the following may indicate SIRS Temperature < 96.8F (36C) or > 101.0F (38.3C) Heart Rate > 90 bpm Respiratory Rate > 20 breaths/min or PaCO2 < 32 mmHg White Blood Cell Count > 12,000 or < 4,000 cells/mm3 or > 10% bands MTDD
--- NOTE | 2024-02-21 12:44 | P.PN ---
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 We have been asked to evaluate the patient for elevated troponins. Patient gives history that he woke up on Monday with rigors shaking he tried to drink some water but did not feel much better. He went on for a good part of the day and then decided to call EMS and come in. He also had significant sweats. He denies having any shortness of breath or chest pain/pressure/tightness. No abdominal pain no nausea or diarrhea. He is feeli ng better at this time. He states he is usually active golfs 2 times per week, mows the riding lawn more and can walk a mile without shortness of breath. He denies having any dizziness, no palpitations, no lower extremity edema. No PND. Patient drinks 2 beers per day and 2 cups of coffee per day. Patient has been started on a heparin drip and IV fluids. Blood pressure 119/58, heart rate 83, pulse ox 96% on room air. Temperature max was 103.5. Patient has been seen by infectious disease with sepsis secondary to cholangitis a possibility. EKG: Sinus rhythm with no acute ST-T wave changes. Chest x-ray: No acute process CT abdomen and pelvis reveals no acute changes within the abdomen or pelvis. Left nephrectomy. Marked pancreatic atrophy. Cholelithiasis. Moderate prostatic hypertrophy. Abdominal ultrasound revealed cholelithiasis. Common bile duct at the upper limits of normal at 6 mm. Laboratory studies: WBC 12.2, hemoglobin 12.1, platelet count 113. Sodium 137, potassium 4.4, BUN 27 creatinine 1.13. Troponins 1.06, 1.82, 1.38. Home cardiac medications: Lisinopril 20 mg daily. 02/20 Patient underwent Lexiscan Cardiolite stress test today. Nuclear portion is pending. Patient denies having any chest pain. He denies any fever or chills. No lightheadedness or dizziness. He is anxious to go home today. Blood pressure 122/73, heart rate 77, pulse ox 97% on room air. Echocardiogram reveals EF of 55 to 60%, normal pulmonary artery systolic pressure. No pericardial effusion. Results of the echocardiogram reviewed with the patient. Physical examination: Gen: This is an 83-year-old male appears to be in no acute distress. VS: reviewed HEENT: Head is atraumatic, normocephalic. Pupils equal, round. Sclerae is anicteric. NECK: Supple. No JVD. LUNGS: Clear to auscultation. No wheezes or rhonchi. No intercostal retractions. HEART: Regular rate and rhythm. No murmur. ABDOMEN: Soft No tenderness. EXTREMITIES: No pedal edema. No calf tenderness. NEUROLOGICAL: Patient is awake, alert and oriented x3. Assessment: Sepsis possibly related to cholangitis, passed gallbladder stone Elevated troponins, most likely secondary to sepsis Hypertension History of pancreatic abscess status postresection History of renal cancer status post resection Daily alcohol intake Plan: Continue patient's home cardiac medications Obtain Lexiscan stress test report If Lexiscan stress test is unremarkable, patient is cleared for discharge and may follow-up with Dr. Alejandre in 1 week Nurse practitioner note has been reviewed, I agree with documented findings and plan of care. Patient was seen and examined. Objective - Vital Signs Vital signs: Vital Signs Temp 97.5 F L 02/21/24 07:43 Pulse 77 02/21/24 07:43 Resp 18 02/21/24 07:43 BP 122/73 02/21/24 07:43 Pulse Ox 97 02/21/24 07:43 FiO2 Intake & Output 02/20/24 02/21/24 02/21/24 18:59 06:59 18:59 Intake Total 351.167 10 Balance 351.167 10 Weight 102.1 kg Intake: IV 20 10 Invasive Line 2 20 10 Intake, IV Titration 213.167 Amount Heparin Sod,Pork in 0.45% 213.167 NaCl 25,000 unit In 0.45 % NaCl 1 250ml.bag @ 9. 669 UNITS/KG/HR 10 mls/hr IV .Q24H [facility] Rx#: [id number] Oral 118 Other: Voiding Method Toilet Toilet Toilet # Voids 3 - Labs CBC & Chem 7: 02/20/24 07:40 02/20/24 07:40 Labs: Abnormal Lab Results - Last 24 Hours (Table) 02/20/24 02/20/24 02/20/24 Range/Units 11:54 16:57 19:53 POC Glucose (mg/dL) 131 H 159 H 223 H (70-110) mg/dL 02/21/24 Range/Units 05:58 POC Glucose (mg/dL) 119 H (70-110) mg/dL Microbiology - Last 24 Hours (Table) 02/19/24 08:21 Blood Culture - Preliminary Blood
--- NOTE | 2024-02-21 13:03 | NM ---
EXAMINATION TYPE: NM stress lexiscan cardiolite DATE OF EXAM: 02/21/2024 COMPARISON: NONE CLINICAL INDICATION: Male, 83 years old with history of elevated trop; TECHNIQUE: After the intravenous administration of 9.89 mCi Tc 99m Sestamibi - Cardiolite resting SP ECT images acquired 35 minutes post injection. The patient received 0.4mg Lexiscan, 25.4 mCi Tc 99m Sestamibi - Stress images obtained [address] injection FINDINGS: Review of stress and rest SPECT images demonstrates small focal area of reversibility involving the l ateral wall of the myocardium.. Gated analysis shows normal wall motion with an estimated left ventr icular ejection fraction of 73 %. IMPRESSION: Small area of suggested stress-induced reversibility involving the lateral wall myocardium could be artifactual. Recommend correlation clinically to exclude stress-induced ischemia. [facility], , 02/21/2024 1:01 PM A Red level critical message alert has been initiated for Adan Pedroza MD via the [place] Critical Results System on 02/21/2024 1:00 PM. This message alert has been sent to Adan Pedroza MD via the preferences provided by the clinician for the receipt of Radiology Critical Findings. Message ID [id number].
--- NOTE | 2024-02-21 16:13 | P.PN ---
Progress Note - Text Progress Note Date: 02/21/24 patient is a 83-year-old gentleman with past medical history significant for diabetes mellitus, pancreatitis the ER because of chills and shortness of breath for 1 day. Patient stated that he was all right last night when he started noticing that he was shaking uncontrollably. Patient did not check his fever at the time but felt very cold. Patient also complained of shortness of breath at the time. Shortness of breath was at rest as on exertion. Denied any chest pain. There is no complaint of orthopnea or PND. Denied any nausea or vomiting. Patient stated that her feeling of being cold lasted throughout the night and this morning he decided to come to the ER. Initial vital signs in the ER showed a temperature of 103.5. Initial lab work done in the ER showed WBC 7.8, hemoglobin 14.1, platelet count of 143 sodium 136, potassium 4, BUN 28, creatinine 1.25, lactate 2.2, phosphorus 1.1, magnesium 1.2, bilirubin 1.4, troponin 1.060 UA negative for any infection Influenza A not detected Influenza B not detected RSV not detected COVID-19 not detected EKG done in the ER showed heart rate of 102, no ST segment elevation or depression seen, no T-wave inversions seen. Chest x-ray done in the ER no acute process Patient admitted to internal medicine service 02/19. Patient seen and examined. CT abdominal pelvis done showed no acute changes within the abdominal pelvis. Left nephrectomy, marked pancreatic atrophy. Cardiology eval the patient, ordered stress test and 2D echo. Denies any fever or chills. States he is doing much better. February 20: Sitting edge of the bed. No chest pain no shortness of breath. No abdominal pain. Denies any fever and chills. No nausea vomiting. Had a bowel movement. Patient had a prior left nephrectomy. Patient had presented with chills rigors and a fever of 103. No source surgically has specifically been found. Blood cultures are pending. Patient's and daughter at the bedside. Keen to go home. Since no other source of infection is found of the skin that the blood cultures are negative before he goes home. As talked to ID Dr. Linares he agrees with the same. Lexiscan showed small areas suggested stress-induced reversibility involving the lateral myocardial wall that could be artifactual. Cardiology is following. Active Medications Acetaminophen (Acetaminophen Tab 325 Mg Tab) 650 mg PO Q6HR PRN PRN Reason: Mild Pain or Fever > 100.5 Aspirin (Aspirin 81 Mg) 81 mg PO DAILY [facility] Dextrose/Water (Dextrose 50% Syringe 50 Ml) 25 ml IVP PER PROTOCOL PRN; Protocol PRN Reason: Hypoglycemia Dextrose/Water (Dextrose 50% Syringe 50 Ml) 50 ml IVP PER PROTOCOL PRN; Protocol PRN Reason: Hypoglycemia Sodium Chloride (Saline 0.9%) 1,000 mls @ 130 mls/hr IV .Q7H42M [facility] Last Admin: 02/21/24 09:37 Dose: Not Given Ceftriaxone Sodium 2 gm/ (Sodium Chloride) 50 mls @ 100 mls/hr IVPB Q24HR [facility]; Protocol Last Admin: 02/21/24 08:33 Dose: 100 mls/hr Insulin Aspart (Insulin Aspart (Novolog) 100 Unit/Ml Vial) 0 unit SQ ACHS [facility]; Protocol Last Admin: 02/21/24 12:29 Dose: Not Given Insulin Detemir (Insulin Detemir (Levemir) 100 Unit/Ml Syr) 25 unit SQ HS [facility] Last Admin: 02/20/24 22:17 Dose: 25 unit Lisinopril (Lisinopril 20 Mg Tab) 20 mg PO DAILY [facility] Last Admin: 02/21/24 08:33 Dose: 20 mg Miscellaneous Information (Phosphorus Replacement Protoco 1 Each Misc) 1 each MISCELLANE DAILY PRN; Protocol PRN Reason: Per Protocol Morphine Sulfate (Morphine Sulfate 4 Mg/Ml Syringe) 4 mg IV Q4HR PRN PRN Reason: Severe Pain (Scale 7 to 10) Multivitamins/Minerals (Vit A,C & D-Lsembl-Jwtznfqi 1 Each Tab) 1 each PO DAILY [facility] Last Admin: 02/21/24 08:33 Dose: 1 each Naloxone HCl (Naloxone 0.4 Mg/Ml 1 Ml Vial) 0.2 mg IV Q2M PRN PRN Reason: Opioid Reversal Ondansetron HCl (Ondansetron 4 Mg/2 Ml Vial) 4 mg IVP Q8HR PRN PRN Reason: Nausea And Vomiting On examination: VITAL SIGNS: [97.9, 84, 18, 140 x 73, 97% room air] GENERAL APPEARANCE: Sitting at edge of the bed, comfortable HEENT: Normal external appearance of nose and ear. Oral cavity normal EYES: Pupils equal. Conjunctiva normal. NECK: JVD not raised. Mass not palpable. RESPIRATORY: Respiratory effort normal. Lungs clear to auscultation. CARDIOVASCULAR: First and second sounds normal. No edema. ABDOMEN: Soft. Liver and spleen not palpable. No tenderness. No mass palpable. PSYCHIATRY: Alert and oriented x3. Mood and affect normal. INVESTIGATIONS, reviewed in the clinical context: Lexiscan stress test: Small area of possible reversibility could be artifactual February 19: White count 12.2 hemoglobin 12.1 platelets 113 potassium 4.4 creatinine 1.[address] abdomen pelvis: Left nephrectomy. Marked pancreatic atrophy. Gallstones. Moderate prostatic hypertrophy Abdominal ultrasound: Gallstones common bile duct upper limits of normal 6 mm. 2D echo: EF 55 to 60% UA: Glucose 1+ Troponin I-1.060, 1.8, 1.3 CRP 3.6 procalcitonin 46.4. Lactic acid 2.2 repeat 1.9 Influenza type A, type B, RSV, COVID-19: Not detected Assessment and plan: -Sepsis from possible cholangitis: Improving Blood cultures pending. IV ceftriaxone. -Probable type II NSTEMI, secondary to sepsis Lexiscan stress test.-Being followed by cardiology Add Lipitor. -Hypophosphatemia -Hypomagnesemia -Gallstones -Essential hypertension Zestril -Diabetes mellitus type 2, chronically insulin add Lipitor -Full code Discussed length with the patient his and daughter. Since we do not have a clear-cut source of infection make sure the blood cultures are negative before he can be discharged. Discussed this with ID 2. Meantime continue with IV ceftriaxone.
[2024-02-21] MEDS: ENOXAPARIN 40 MG/0.4 ML SYRINGE SQ SCH (16:47)
[2024-02-21 16:49] LABS: Glucose,Whole Blood 309 mg/dL (70-110)
--- NOTE | 2024-02-21 17:25 | P.PN ---
Subjective Progress Note Date: 02/21/24 Principal diagnosis: Reason for follow-up is fever possible cholangitis Patient is a 83-year-old male with a past medical history significant for diabetes mellitus hypertension macular degeneration former smoker presenting to the hospital for evaluation of rigors and chills, patient was febrile initial workup did shows elevated bilirubin ultrasound suggestive of gallstones and CBD was upper limit normal subsequently did have a CT abdominal pelvis did not show any acute abnormality. On today's evaluation that is 02/21/2024,the patient remains to be afebrile, patient is on room air not requiring supplemental oxygen and denies any shortness of breath no chest pain or cough.Patient denies having any nausea or vomiting, no abdominal pain and no diarrhea has been reported, patient mention feeling better wants to go home. No new lab has been obtained today blood cultures currently pending Objective - Vital Signs Vital signs: Vital Signs Temp 97.9 F 02/21/24 16:03 Pulse 84 02/21/24 16:03 Resp 18 02/21/24 16:03 BP 140/63 02/21/24 16:03 Pulse Ox 97 02/21/24 16:03 FiO2 Intake & Output 02/20/24 02/21/24 02/21/24 18:59 06:59 18:59 Intake Total 351.167 138 Balance 351.167 138 Weight 102.1 kg Intake: IV 20 20 Invasive Line 2 20 20 Intake, IV Titration 213.167 Amount Heparin Sod,Pork in 0.45% 213.167 NaCl 25,000 unit In 0.45 % NaCl 1 250ml.bag @ 9. 669 UNITS/KG/HR 10 mls/hr IV .Q24H SLOAN Rx#: [id number] Oral 118 118 Other: Voiding Method Toilet Toilet Toilet # Voids 3 - Exam GENERAL DESCRIPTION: An elderly male lying in bed in no distress RESPIRATORY SYSTEM: Unlabored breathing , decreased breath sounds at bases HEART: S1 S2 regular rate and rhythm , ABDOMEN: Soft , no tenderness EXTREMITIES: No edema feet - Labs CBC & Chem 7: 02/20/24 07:40 02/20/24 07:40 Labs: Abnormal Lab Results - Last 24 Hours (Table) 02/20/24 02/21/24 02/21/24 Range/Units 19:53 05:58 11:30 POC Glucose (mg/dL) 223 H 119 H 154 H (70-110) mg/dL 02/21/24 Range/Units 16:48 POC Glucose (mg/dL) 309 H (70-110) mg/dL Microbiology - Last 24 Hours (Table) 02/19/24 08:21 Blood Culture - Preliminary Blood Assessment and Plan (1) Penicillin allergy Current Visit: Yes Status: Acute Code(s): Z88.0 - ALLERGY STATUS TO PENICILLIN SNOMED Code(s): 48380029 (2) Fever Current Visit: Yes Status: Acute Code(s): R50.9 - FEVER, UNSPECIFIED SNOMED Code(s): 776940960 Plan: 1patient presented to hospital with rigors and chills in this patient who did have fever elevated white count tachycardia meeting criteria for SIRS source possible cholangitis at the patient did have a elevated bilirubin there was evidence of gallstones as well as CBD upper limit normal on the ultrasound, currently no other obvious focus of infection chest x-ray was clear urine is negative for evidence of cellulitis or joint swelling. 2patient with a penicillin allergy that will limit number of antibiotics safe to use. 3patient did have CT of abdominal pelvis did not show any acute abnormality, patient did have elevated procalcitonin of 46.6 4patient did have resolution of his fever feeling better, to continue with Rocephin 2 g daily while waiting for the blood cultures to be finalized and if remains to be negative we will finish therapy with oral antibiotics Daughter at the bedside questions were answered Dictation was produced using [employer] dictation software. please excuse any grammatical, word or spelling errors. Time with Patient: Less than 30
[2024-02-21 20:33] LABS: Glucose,Whole Blood 293 mg/dL (70-110)
[2024-02-21] MEDS: ATORVASTATIN 20 MG TAB PO SCH (20:41)
[2024-02-22 06:10] LABS: Glucose,Whole Blood 90 mg/dL (70-110)
[2024-02-22] MEDS: ASPIRIN 81 MG PO SCH (08:42)
[2024-02-22 10:05] VITALS: BP 164/75; PULSE 74; RESP 16; TEMP 97.5
[2024-02-22 11:34] LABS: Glucose,Whole Blood 209 mg/dL (70-110)
[2024-02-22 13:29] LABS: Basophils % (A) 0 %; Eosinophils # (A) 0.2 k/uL (0-0.7); Eosinophils % (A) 4 %; HCT 37.4 % (39.0-53.0); HGB 12.6 gm/dL (13.0-17.5); Lymphocytes % (A) 18 %; MCH 33.2 pg (25.0-35.0); MCHC 33.7 g/dL (31.0-37.0); MCV 98.5 fL (80.0-100.0); Mean Platelet Volume 8.3; Monocytes # (A) 0.3 k/uL (0-1.0); Monocytes % (A) 5 %; Neutrophils % (A) 70 %; Platelet Count 129 k/uL (150-450); RBC 3.79 m/uL (4.30-5.90); RDW 13.9 % (11.5-15.5); WBC 5.8 k/uL (3.8-10.6)
--- NOTE | 2024-02-22 14:50 | P.PN ---
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 We have been asked to evaluate the patient for elevated troponins. Patient gives history that he woke up on Monday with rigors shaking he tried to drink some water but did not feel much better. He went on for a good part of the day and then decided to call EMS and come in. He also had significant sweats. He denies having any shortness of breath or chest pain/pressure/tightness. No abdominal pain no nausea or diarrhea. He is feeli ng better at this time. He states he is usually active golfs 2 times per week, mows the riding lawn more and can walk a mile without shortness of breath. He denies having any dizziness, no palpitations, no lower extremity edema. No PND. Patient drinks 2 beers per day and 2 cups of coffee per day. Patient has been started on a heparin drip and IV fluids. Blood pressure 119/58, heart rate 83, pulse ox 96% on room air. Temperature max was 103.5. Patient has been seen by infectious disease with sepsis secondary to cholangitis a possibility. EKG: Sinus rhythm with no acute ST-T wave changes. Chest x-ray: No acute process CT abdomen and pelvis reveals no acute changes within the abdomen or pelvis. Left nephrectomy. Marked pancreatic atrophy. Cholelithiasis. Moderate prostatic hypertrophy. Abdominal ultrasound revealed cholelithiasis. Common bile duct at the upper limits of normal at 6 mm. Laboratory studies: WBC 12.2, hemoglobin 12.1, platelet count 113. Sodium 137, potassium 4.4, BUN 27 creatinine 1.13. Troponins 1.06, 1.82, 1.38. Home cardiac medications: Lisinopril 20 mg daily. 02/20 Patient underwent Lexiscan Cardiolite stress test today. Nuclear portion is pending. Patient denies having any chest pain. He denies any fever or chills. No lightheadedness or dizziness. He is anxious to go home today. Blood pressure 122/73, heart rate 77, pulse ox 97% on room air. Echocardiogram reveals EF of 55 to 60%, normal pulmonary artery systolic pressure. No pericardial effusion. Results of the echocardiogram reviewed with the patient. 02/21 Patient thought he was going to be discharged home yesterday but ID is waiting for blood culture reports. Patient continues to deny having any chest pain, no shortness of breath no palpitations, no dizziness. He has been ambulating in his room and in the hallway. No acute difficulty with that. Lexiscan Cardiolite stress test completed yesterday revealed small area of suggested stress-induced reversibility involving the lateral wall myocardium could be artifactual. Recommend correlation. Physical examination: Gen: This is an 83-year-old male appears to be in no acute distress. VS: reviewed HEENT: Head is atraumatic, normocephalic. Pupils equal, round. Sclerae is anicteric. NECK: Supple. No JVD. LUNGS: Clear to auscultation. No wheezes or rhonchi. No intercostal retractions. HEART: Regular rate and rhythm. No murmur. ABDOMEN: Soft No tenderness. EXTREMITIES: No pedal edema. No calf tenderness. NEUROLOGICAL: Patient is awake, alert and oriented x3. Assessment: Sepsis possibly related to cholangitis, passed gallbladder stone Elevated troponins, most likely secondary to sepsis Hypertension History of pancreatic abscess status postresection History of renal cancer status post resection Daily alcohol intake Plan: Continue patient's home cardiac medications Patient is cleared for discharge and may follow-up with Dr. Alejandre in 1 week Nurse practitioner note has been reviewed, I agree with documented findings and plan of care. Patient was seen and examined. Objective - Vital Signs Vital signs: Vital Signs Temp 97.5 F L 02/22/24 08:12 Pulse 74 02/22/24 08:12 Resp 16 02/22/24 08:12 BP 164/75 02/22/24 08:12 Pulse Ox 95 02/22/24 08:24 FiO2 21 02/22/24 08:24 Intake & Output 02/21/24 02/22/24 02/22/24 18:59 06:59 18:59 Intake Total 256 20 138 Balance 256 20 138 Weight 102.3 kg Intake: IV 20 20 20 Invasive Line 1 10 Invasive Line 2 20 20 10 Oral 236 118 Other: Voiding Method Toilet Toilet Toilet # Voids 2 - Labs CBC & Chem 7: 02/22/24 12:58 02/20/24 07:40 Labs: Abnormal Lab Results - Last 24 Hours (Table) 02/21/24 02/21/24 02/21/24 Range/Units 11:30 16:48 20:32 POC Glucose (mg/dL) 154 H 309 H 293 H (70-110) mg/dL Microbiology - Last 24 Hours (Table) 02/19/24 08:21 Blood Culture Gram Stain - Preliminary Blood Blood Culture - Preliminary
--- NOTE | 2024-02-22 15:07 | P.PN ---
Subjective Progress Note Date: 02/22/24 Principal diagnosis: Reason for follow-up is fever possible cholangitis Patient is a 83-year-old male with a past medical history significant for diabetes mellitus hypertension macular degeneration former smoker presenting to the hospital for evaluation of rigors and chills, patient was febrile initial workup did shows elevated bilirubin ultrasound suggestive of gallstones and CBD was upper limit normal subsequently did have a CT abdominal pelvis did not show any acute abnormality. On today's evaluation that is 02/22/2024, the patient continues to be afebrile, the patient is on room air and breathing comfortably, the Pt denies having any chest pain or cough, the patient denies having any abdominal pain no vomiting or any diarrhea, patient mention feeling really good wants to go home. Patient white count is 5.8 blood culture with gram-positive bacilli Objective - Vital Signs Vital signs: Vital Signs Temp 97.5 F L 02/22/24 08:12 Pulse 74 02/22/24 08:12 Resp 16 02/22/24 08:12 BP 164/75 02/22/24 08:12 Pulse Ox 95 02/22/24 08:24 FiO2 21 02/22/24 08:24 Intake & Output 02/21/24 02/22/24 02/22/24 18:59 06:59 18:59 Intake Total 256 20 138 Balance 256 20 138 Weight 102.3 kg Intake: IV 20 20 20 Invasive Line 1 10 Invasive Line 2 20 20 10 Oral 236 118 Other: Voiding Method Toilet Toilet Toilet # Voids 2 - Exam GENERAL DESCRIPTION: An elderly male lying in bed in no distress RESPIRATORY SYSTEM: Unlabored breathing , decreased breath sounds at bases HEART: S1 S2 regular rate and rhythm , ABDOMEN: Soft , no tenderness EXTREMITIES: No edema feet - Labs CBC & Chem 7: 02/22/24 12:58 02/20/24 07:40 Labs: Abnormal Lab Results - Last 24 Hours (Table) 02/21/24 02/21/24 02/22/24 Range/Units 16:48 20:32 11:33 RBC (4.30-5.90) m/uL Hgb (13.0-17.5) gm/dL Hct (39.0-53.0) % Plt Count (150-450) k/uL POC Glucose (mg/dL) 309 H 293 H 209 H (70-110) mg/dL 02/22/24 Range/Units 12:58 RBC 3.79 L (4.30-5.90) m/uL Hgb 12.6 L (13.0-17.5) gm/dL Hct 37.4 L (39.0-53.0) % Plt Count 129 L (150-450) k/uL POC Glucose (mg/dL) (70-110) mg/dL Microbiology - Last 24 Hours (Table) 02/19/24 08:21 Blood Culture Gram Stain - Preliminary Blood Blood Culture - Preliminary Assessment and Plan (1) Penicillin allergy Status: Acute Code(s): Z88.0 - ALLERGY STATUS TO PENICILLIN SNOMED Code(s): 04834879 (2) Fever Status: Acute Code(s): R50.9 - FEVER, UNSPECIFIED SNOMED Code(s): 694587193 (3) Positive blood culture Status: Acute Code(s): R78.81 - BACTEREMIA SNOMED Code(s): 793294206 Plan: 1patient presented to hospital with rigors and chills in this patient who did have fever elevated white count tachycardia meeting criteria for SIRS source possible cholangitis at the patient did have a elevated bilirubin there was evidence of gallstones as well as CBD upper limit normal on the ultrasound, currently no other obvious focus of infection chest x-ray was clear urine is negative for evidence of cellulitis or joint swelling. 2patient with a penicillin allergy that will limit number of antibiotics safe to use. 3patient did have CT of abdominal pelvis did not show any acute abnormality, patient did have elevated procalcitonin of 46.6 4patient positive blood culture with gram-positive bacilli more likely skin contamination as the patient have a clinical improvement without getting treatment for this has been explained to the patient in layman term 5 patient will be able to finish therapy with oral Ceftin x 10 days on discharge discussed with admitting physician and close outpatient follow-up Dictation was produced using [employer] dictation software. please excuse any grammatical, word or spelling errors. Time with Patient: Less than 30
--- NOTE | 2024-02-22 19:08 | P.DS ---
Providers Date of admission: 02/19/24 12:18 Expected date of discharge: 02/22/24 Attending physician: Adan Pedroza Consults: 02/19/24 12:18 Consult Physician Routine Consulting Provider: Erin Alejandre Consult Reason/Comments: elevTrop Do you want consulting provider notified?: Yes 02/19/24 13:54 Consult Physician Routine Consulting Provider: Van Saxena Consult Reason/Comments: Fever of unknown origin Do you want consulting provider notified?: Yes Primary care physician: [facility] Course: patient is a 83-year-old gentleman with past medical history significant for diabetes mellitus, pancreatitis the ER because of chills and shortness of breath for 1 day. Patient stated that he was all right last night when he started noticing that he was shaking uncontrollably. Patient did not check his fever at the time but felt very cold. Patient also complained of shortness of breath at the time. Shortness of breath was at rest as on exertion. Denied any chest pain. There is no complaint of orthopnea or PND. Denied any nausea or vomiting. Patient stated that her feeling of being cold lasted throughout the night and this morning he decided to come to the ER. Initial vital signs in the ER showed a temperature of 103.5. Initial lab work done in the ER showed WBC 7.8, hemoglobin 14.1, platelet count of 143 sodium 136, potassium 4, BUN 28, creatinine 1.25, lactate 2.2, phosphorus 1.1, magnesium 1.2, bilirubin 1.4, troponin 1.060 UA negative for any infection Influenza A not detected Influenza B not detected RSV not detected COVID-19 not detected EKG done in the ER showed heart rate of 102, no ST segment elevation or depression seen, no T-wave inversions seen. Chest x-ray done in the ER no acute process Patient admitted to internal medicine service 02/19. Patient seen and examined. CT abdominal pelvis done showed no acute changes within the abdominal pelvis. Left nephrectomy, marked pancreatic atrophy. Cardiology eval the patient, ordered stress test and 2D echo. Denies any fever or chills. States he is doing much better. February 20: Sitting edge of the bed. No chest pain no shortness of breath. No abdominal pain. Denies any fever and chills. No nausea vomiting. Had a bowel movement. Patient had a prior left nephrectomy. Patient had presented with chills rigors and a fever of 103. No source surgically has specifically been found. Blood cultures are pending. Patient's and daughter at the bedside. Keen to go home. Since no other source of infection is found of the skin that the blood cultures are negative before he goes home. As talked to ID Dr. Linares he agrees with the same. Lexiscan showed small areas suggested stress-induced reversibility involving the lateral myocardial wall that could be artifactual. Cardiology is following. : Doing well. No fever. Blood cultures growing gram-positive bacilli. Could be contaminant. Discussed with ID Dr. Saxena. Patient to be discharged on Ceftin 5 mg twice daily for 10 days. Results were discussed with the patient and the daughter at the bedside. Discussed about gallstones. Unsure if that is causative or contributing or not. They have a surgeon down in [place] that they will follow-up for the same. No GI symptoms Discussion and discharge planning more than 35 minutes On examination: VITAL SIGNS: 97.5, 74, 16, 160/75, 97% room air GENERAL APPEARANCE: Up in chair comfortable HEENT: Normal external appearance of nose and ear. Oral cavity normal EYES: Pupils equal. Conjunctiva normal. NECK: JVD not raised. Mass not palpable. RESPIRATORY: Respiratory effort normal. Lungs clear to auscultation. CARDIOVASCULAR: First and second sounds normal. No edema. ABDOMEN: Soft. Liver and spleen not palpable. No tenderness. No mass palpable. PSYCHIATRY: Alert and oriented x3. Mood and affect normal. INVESTIGATIONS, reviewed in the clinical context: February 21: White count 5.8 hemoglobin 12.6 platelets 129 Lexiscan stress test: Small area of possible reversibility could be artifactual February 19: White count 12.2 hemoglobin 12.1 platelets 113 potassium 4.4 creatinine 1.[address] abdomen pelvis: Left nephrectomy. Marked pancreatic atrophy. Gallstones. Moderate prostatic hypertrophy Abdominal ultrasound: Gallstones common bile duct upper limits of normal 6 mm. 2D echo: EF 55 to 60% UA: Glucose 1+ Troponin I-1.060, 1.8, 1.3 CRP 3.6 procalcitonin 46.4. Lactic acid 2.2 repeat 1.9 Influenza type A, type B, RSV, COVID-19: Not detected Assessment and plan: -Sepsis from possible cholangitis: Improving Blood cultures growing gram-positive bacilli could be contaminant. IV ceftriaxone. Discharged on 5 mg Ceftin twice daily for 10 days -Probable type II NSTEMI, secondary to sepsis Lexiscan stress test.-Being followed by cardiology Lipitor addition discussed with patient -Hypophosphatemia -Hypomagnesemia -Gallstones Patient will follow-up with his surgeon in [facility] -Essential hypertension Zestril -Diabetes mellitus type 2, chronically insulin Addition of Lipitor discussed -Full code Disposition: Home Plan - Discharge Summary Discharge Rx Participant: No New Discharge Prescriptions: New Aspirin 81 mg PO DAILY tab cefUROXime axetiL [Ceftin] 500 mg PO BID #10 tab Atorvastatin [Lipitor] 20 mg PO HS #30 tab Continue lisinopriL [Zestril] 20 mg PO DAILY Vits A,C,E/Lutein/Minerals [Ocuvite with Lutein Tablet] 1 tab PO DAILY Insulin Glargine [Lantus Vial] 25 - 26 unit SQ HS INSULIN LISPRO (HumaLOG) [humaLOG] 8 - 11 units SQ AC-TID [place]-3/Dha/Epa/Fish Oil [Fish Oil 1,000 mg Softgel] 1 cap PO DAILY Discharge Medication List INSULIN LISPRO (HumaLOG) [humaLOG] 8 - 11 units SQ AC-TID 02/19/24 [History] Insulin Glargine [Lantus Vial] 25 - 26 unit SQ HS 02/19/24 [History] [place]-3/Dha/Epa/Fish Oil [Fish Oil 1,000 mg Softgel] 1 cap PO DAILY 02/19/24 [History] Vits A,C,E/Lutein/Minerals [Ocuvite with Lutein Tablet] 1 tab PO DAILY 02/19/24 [History] lisinopriL [Zestril] 20 mg PO DAILY 02/19/24 [History] Aspirin 81 mg PO DAILY tab 02/22/24 [Rx] Atorvastatin [Lipitor] 20 mg PO HS #30 tab 02/22/24 [Rx] cefUROXime axetiL [Ceftin] 500 mg PO BID #10 tab 02/22/24 [Rx] Follow up Appointment(s)/Referral(s): own-surgeon, [Other] - 1 Week Erin Alejandre MD [STAFF PHYSICIAN] - 03/04/24 1:30 pm Devendra Hirsch MD [REFERRING] - 1-2 days Patient Instructions/Handouts: Nuclear Stress Test (GEN) Discharge/Stand Alone Forms: Who Do I Call? Discharge Disposition: HOME SELF-CARE
== END 2024-02-22 13:57 | disposition home or self-care (01) | DRG 871 ==
LOC: EC 07:10 → 3SCARD 12:18
PROVIDERS: ADMIT Hospitalist; ATTEND Hospitalist
DX: A41.9 Sepsis, unspecified organism (principal); I21.A1 Myocardial infarction type 2; E11.9 Type 2 diabetes mellitus without complications; Z79.4 Long term (current) use of insulin; K86.89 Other specified diseases of pancreas; E83.39 Other disorders of phosphorus metabolism; I10 Essential (primary) hypertension; N40.0 Benign prostatic hyperplasia without lower urinary tract symptoms; K80.20 Calculus of gallbladder without cholecystitis without obstruction; E83.42 Hypomagnesemia; Z79.82 Long term (current) use of aspirin; Z87.891 Personal history of nicotine dependence; Z79.899 Other long term (current) drug therapy; Z85.528 Personal history of other malignant neoplasm of kidney; Z88.0 Allergy status to penicillin; Z87.19 Personal history of other diseases of the digestive system; Z11.52 Encounter for screening for COVID-19; Z90.5 Acquired absence of kidney
CPT/HCPCS: 36415; 71046; 74177; 76705; 78452; 80053; 80061; 81003; 83036; 83605; 83735; 83880; 84100; 84145; 84484; 85025; 85379; 85610; 85652; 85730; 86140; 87040; 87636; 93005; 93017; 93306; 94760; 96361; 96365; 96366; 96367; 96368; 96375; 99291

== ENCOUNTER → 2024-05-10 | Day surgery (SDC) | payer MEDICARE, OTHER ==
[2024-05-09 09:53] VITALS: BMI 30.5
[~2024-05-10] MED LIST: ALPRAZolam 0.25 MG TAB PO PRN; ALPRAZolam 0.5 MG TAB PO PRN; ASPIRIN 81 MG PO SCH; ATORVASTATIN 20 MG TAB PO SCH; ATORVASTATIN 80 MG TAB PO STA; NITROGLYCERIN SL TABS 0.4 MG TAB SUBLINGUAL PRN; RX INFO: IV CONTRAST WAS GIVEN 1 EACH MISC MISCELLANE PRN; SODIUM CHLORIDE 0.9% 1,000 ML IV SCH; lisinopriL 20 MG TAB PO SCH
[2024-05-10] MEDS: IV FLUID CONTINUATION 1,000 ML IV ONE (06:15)
[2024-05-10] MEDS: SODIUM CHLORIDE 0.9% 1,000 ML in EMPTY BAG 1 BAG IV SCH (06:18)
[2024-05-10] MEDS: ASPIRIN 325 MG TAB PO STA (06:33)
[2024-05-10 06:36] LABS: Basophils % (A) 1 %; Eosinophils # (A) 0.3 k/uL (0-0.7); Eosinophils % (A) 5 %; HCT 47.4 % (39.0-53.0); HGB 15.3 gm/dL (13.0-17.5); Lymphocytes # (A) 2.4 k/uL (1.0-4.8); Lymphocytes % (A) 35 %; MCH 32.1 pg (25.0-35.0); MCHC 32.2 g/dL (31.0-37.0); MCV 99.7 fL (80.0-100.0); Mean Platelet Volume 7.2; Monocytes # (A) 0.5 k/uL (0-1.0); Monocytes % (A) 7 %; Neutrophils # (A) 3.4 k/uL (1.3-7.7); Neutrophils % (A) 49 %; Platelet Count 203 k/uL (150-450); RBC 4.75 m/uL (4.30-5.90); RDW 13.2 % (11.5-15.5); WBC 6.9 k/uL (3.8-10.6)
[2024-05-10 07:15] VITALS: RESP 16; TEMP 97.9
[2024-05-10] MEDS: fentaNYL (PF) 50 MCG/1 ML VIAL IVP ONE (07:29)
[2024-05-10] MEDS: LIDOCAINE 1% INJ 10MG/ML (20 ML MDV) SQ ONE (07:31)
[2024-05-10] MEDS: VERAPAMIL SYRINGE (5 MG/10 ML) INTRAARTER ONE (07:35)
[2024-05-10] MEDS: HEPARIN SODIUM 1,000 UN/ML (10ML VL) IV ONE (07:37)
[2024-05-10] MEDS: HEPARIN SODIUM,PORCINE 10,000 UNIT in SODIUM CHLORIDE 0.9% 1,000 ML IRRIGATION PRN (07:45)
[2024-05-10] MEDS: IOPAMIDOL-370 100ML BTL INJ ONE (07:45)
[2024-05-10] MEDS: HEPARIN SODIUM,PORCINE (1 ML) 2,500 UNIT in SODIUM CHLORIDE 0.9% 250 ML IRRIGATION PRN (07:46)
--- NOTE | 2024-05-10 08:09 | P.CARDCATH ---
Date of Procedure: 05/10/24 Description of Procedure: Cardiac Catheterization: The patient is an 83-year-old male with a known history of hypertension, diabetes who recently presented with abdominal discomfort and evidence of troponin elevation. He had no EKG changes. He subsequently underwent calcium scoring and found to have significant elevation in the LAD. He had an abnormal MPI. Recommendations were made regarding cardiac catheterization, the risks and the complications were discussed with the patient who is in full understanding and agreement. Procedure Description: Patient was brought to slab installer in fasting semi-sedated state after receiving Fentanyl and Benadryl achieiving moderate conscious sedated state. Using X ylocaine Anesthesia and modified Seldinger technique, a 6-[place] sheath was introduced in the right radial artery . Subsequently, selective coronary angiography was performed using a 5-[place] 3.5 bend Juliet catheter. Multiple views of the coronary artery including hemiaxial views were obtained. The 6 [place] pigtail catheter was used to cross the aortic valve and LVEDP was calculated. Following that, catheter and sheath were removed. Hemostasis was obtained with deployment of vascular band . There was no immediate complication. Patient was returned to room in stable condition. Of note, the patient received a total of 5000 units of intravenous heparin as well as intra-arterial verapamil. Findings: Fluoroscopy: Calcifications in the LAD was noted Left main: This is a large size vessel, bifurcating into LAD and left circumflex, left main has no obstructive disease. LAD: This is a large size vessel, reaching to the apex with a wraparound apex segment. The mid LAD has a 30 to 40% eccentric lesion, the rest of the vessel has no high-grade stenosis Left circumflex: This is a large nondominant vessel, giving rise to a large obtuse marginal branch, the left circumflex and its branches have no obstructive disease RCA: This is a large nondominant vessel bifurcating distally to PDA and PLV, the right coronary artery and its branches have no obstructive disease Left Ventriculogram: Not performed Hemodynamics: There was no gradient across the aortic valve, LVEDP was 10-15 mmHg Conclusion: 1. Mild to moderate disease in the mid LAD 2. No obstructive disease in the left circumflex and right coronary artery 3. Right dominance 4. Normal LVEDP Recommendations: I have recommended to continue medical therapy with aggressive coronary risks modifications. The findings and the recommendations were discussed with the patient and the family and they were in full understanding and agreement. Duration of sedation is 16 minutes.
[2024-05-10 12:03] VITALS: BP 156/71; PULSE 64
== END | disposition home or self-care (01) ==
LOC: CATHCVL 05:34
PROVIDERS: ATTEND Internal Medicine Interventional Cardiology
DX: I25.10 Atherosclerotic heart disease of native coronary artery without angina pectoris (principal); E10.22 Type 1 diabetes mellitus with diabetic chronic kidney disease; I12.9 Hypertensive chronic kidney disease with stage 1 through stage 4 chronic kidney disease, or unspecified chronic kidney disease; N18.9 Chronic kidney disease, unspecified; E78.00 Pure hypercholesterolemia, unspecified; Z79.4 Long term (current) use of insulin; Z79.899 Other long term (current) drug therapy; Z87.891 Personal history of nicotine dependence; Z85.528 Personal history of other malignant neoplasm of kidney; Z90.5 Acquired absence of kidney; Z88.0 Allergy status to penicillin; Z82.49 Family history of ischemic heart disease and other diseases of the circulatory system
CPT/HCPCS: 93458; 82947; 85025; J1644 ×3; J2003; Q9967; J3010